=== PATIENT | male | born 1990 | race Caucasian/White ===

== ENCOUNTER 2018-05-24 18:06 | Inpatient (IN) | payer OTHER, MEDICAID ==
[2018-05-24 18:37] LABS: PLATELET COUNT 399 10^3/uL (150-400)
--- NOTE | 2018-05-24 19:49 | EDPHY ---
H & P Stated Complaint: SI - Personal History Current Tetanus/Diphtheria Vaccine: Yes Current Tetanus Diphtheria and Acellular Pertussis (TDAP): Yes - Medical/Surgical History Hx Asthma: No Hx Chronic Respiratory Disease: No Hx Diabetes: No Hx Cardiac Disease: No Hx Renal Disease: No Hx Cirrhosis: No Hx Alcoholism: No Hx HIV/AIDS: No Hx Splenectomy or Spleen Trauma: No Other PMH: bipolar with psychotic features, meth use, homeless - Social History Smoking Status: Current every day smoker Alcohol Use: Sober Drug Use: Marijuana Time Seen by Provider: 05/24/18 19:46 HPI/ROS: CHIEF COMPLAINT: Suicidal ideation HISTORY OF PRESENT ILLNESS: 27-year-old male with schizoaffective disorder presents with suicidal ideation. He was just seen at [facility] in the emergency department, had a mental health evaluation and was given a prescription for Latuda. He took the 1st dose of Latuda this morning. He returns this evening because of persistent suicidal thoughts. Hears voices that tell him to kill himself. He plans to cut himself in a suicidal attempt. He has previously cut himself, but apparently the cuts were minor and not life- threatening. He is currently requesting Zyprexa. REVIEW OF SYSTEMS: complete 10 point ROS reviewed and is negative except for the noted elements in the HPI (Sowmya Mercado) - Physical Exam Exam: General Appearance: Alert, cooperative Eyes: Pupils equal and round, no conjunctival pallor or injection ENT, Mouth: Mucous membranes moist Neck: Normal inspection Respiratory: Lungs are clear to auscultation Cardiovascular: Regular rate and rhythm Gastrointestinal: Abdomen is soft and nontender Neurological: A&O, nonfocal exam Skin: Warm and dry Extremities: Bilateral upper extremities are slightly erythematous, nontender Psychiatric: Mood and affect normal (Sowmya Mercado S) Constitutional: Initial Vital Signs Temperature (C) 36.7 C 05/24/18 18:09 Heart Rate 76 18 18:09 Respiratory Rate 16 18 18:09 Blood Pressure 123/74 H 18 18:09 O2 Sat (%) 100 18 18:09 O2 Delivery Mode Room Air Allergies/Adverse Reactions: No Known Allergies Allergy (Verified 05/25/18 09:34) Home Medications: Medication Instructions Recorded Lurasidone HCl [Latuda] 40 mg PO DAILY tab 05/27/18 Medical Decision Making ED Course/Re-evaluation: This patient presents with persistent suicidal ideation. He is on an M1 hold. Urine tox screen is positive for amphetamines, cocaine and marijuana. He took all of these drugs 3 days ago, no drug use today. He understands the mental health will likely not evaluate him this evening because of the positive tox screen for amphetamines. Zyprexa 5 mg ODT given. (Sowmya Mercado) 0700AM: No acute events overnight. Signed over to Dr. Weeks. (Steven Rendon ) Other Provider: I assumed care of this patient at 7:00 a.m., change of shift, from Dr. Steven Rendon. The patient's urine tox positive for methamphetamines, cocaine, and marijuana. He is currently on an M1 hold. Will be awaiting evaluation. Accepted at [facility]. EMTALA signed. (Marlene Weeks) - Data Points Laboratory Results: Laboratory Results 05/24/18 18:15 05/24/18 18:15 Medications Given: Discontinued Medications Acetaminophen (Tylenol) 650 mg PO Q4HRS PRN PRN Reason: Pain, Mild Stop: 11/21/18 11:39 Last Admin: 05/26/18 10:44 Dose: 650 mg Lorazepam (Ativan) 0.5 - 1 mg PO Q6HRS PRN PRN Reason: Anxiety, Able to Take PO Stop: 11/21/18 11:39 Last Admin: 05/27/18 10:24 Dose: 1 mg Lurasidone HCl (Latuda) 40 mg PO DAILY DAVID Stop: 11/21/18 11:42 Last Admin: 05/27/18 08:26 Dose: 40 mg Nicotine Polacrilex (Nicorette) 2 mg B PRN PRN PRN Reason: Nicotine Withdrawal Stop: 11/21/18 10:06 Last Admin: 05/27/18 09:59 Dose: 2 mg Olanzapine (Zyprexa Zydis) 5 mg PO EDNOW ONE Stop: 05/24/18 19:51 Last Admin: 05/24/18 20:00 Dose: 5 mg Departure - Departure Disposition: [facility] IP Clinical Impression: Suicidal ideation Condition: Good
[2018-05-24] MEDS ORDERED: OLANZapine DISINTEGR 5 MG TAB PO ONE (19:50)
--- NOTE | 2018-05-25 09:48 | ASMTTLCEVL ---
TLC Evaluation - Basic Information Evaluation Start Date and 05/24/2018 09:30 PM Time Hospital Status Answers: M1 Hold 72-hr M1 Hold Start Date 05/24/2018 05:25 PM and Time Patient statement Notes: Keep hearing voices. Narrative Notes: Pt is a 27 year old male who presented by [facility] on an M1 after pt called [facility] the [facility] stating he was actively thinking about harming himself by overdose. Pt was just seen at the [facility] in the ED, had a mental health evaluation and was given a prescription for Latuda which he took his 1st dose this morning. Pt returns this evening because of persistent suicidal thoughts, hearing voices that tell him to kill himself. Pt tells this leader writer the voices tell him to cut himself. Pt reports he has been hearing these voices for the past 6 days and that this has never happened before. Pt stated he is still feeling suicidal. Pt states he is feeling very depressed for the past couple weeks and is not sure what caused the depression. Pt stated he recently moved here from [place] 3.5 months ago because, "[place] has better health care." Diagnosis History Notes: Pt reports a hx of schizoaffective disorder. Prior suicide attempts Notes: Pt denied any prior suicide attempts. Prior hospitalizations Notes: Pt stated he has been hospitalized 3 or 4 times in [place]. Treatment Responses Notes: Unknown History of violence Notes: Pt denied any hx of violence. Therapist: None Psychiatrist: None Medications (name, dosage, route, freq uency) Notes: Latuda 80mg Allergies/Reaction Notes: Nka Sleep Notes: WNL. Appetite Notes: WNL. Medical/Surgical history Notes: None reported. Substance use history (frequency, intensity, his tory, duration) Notes: Pt stated he used methamphetamine and cocaine 3 days ago and stated he only uses these drugs, occasionally. Pt stated he also smokes marijuana, every other day, and has been doing this for about 2 months. Pts utox was positive for cocaine, methamphetamine and marijuana. Family composition Notes: Pt stated his mother lives in [place] in a alf home and his father lives here in [place]. Pt is an only child. Need for family Answers: No participation in patient's care Family psychiatric/substance abuse history Notes: Pt denied any hx of family psychiatric/substance abuse history. Developmental history Notes: Pt stated he grew up in [place] with his mother. Pt denied any childhood abuse hx.Pt declined to provide further information. Abuse concerns Answers: None Marital status/children Notes: Unmarried, no children. Living situation Notes: Pt stated he is currently homeless but stated next month he will have his own apartment. Sexual history/orientation Notes: Pt identifies as heterosexual. Not active. Peer support/family strengths Notes: Pt stated he has friends here in [place]. Education level/history Notes: Pt declined to provide this information. 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 Notes: None reported. Legal Notes: Pt denied any legal history. Zoroastrian/Spiritual Notes: None that would interfere treatement. Leisure Notes: Pt stated he does not have any leisure activities. Collateral Notes: None available. Patient's strengths Answers: Artistic/Creative/Musical (Please select at least TWO strengths): Honest TLC Evaluation - Mental Status Exam Appearance: Answers: Unkempt Eye Contact: Answers: Absent Mood: Answers: Euthymic Affect: Answers: Sad Subdued Behavior: Answers: Cooperative Guarded Sedated Speech: Answers: Relevant Illogical Loose Associations Mumbling Slurred Thought Process: Answers: Disorganized Oriented Distracted Loose Associations Insight: Answers: Fair Judgement: Answers: Fair Depression Answers: Difficulty Concentrating Signs/Symptoms: Diminished Pleasure Sad Mood Hallucinations: Answers: Command Delusions: Answers: Being Controlled Current Stage of Change Answers: Precontemplation Pt reported to have Answers: Yes suicidal/self-injuring ideation/behavior? Pt reported to be making Answers: Yes suicidal/self-injuring threats? Pt reported to have Answers: No aggression/assault ideation/behavior? Pt reported to be making Answers: No aggression/assault threats? Pt exhibits inability to Answers: No care for self/grave disability? Ideation/behavior is Answers: Yes chronic? Patient has a specific Answers: Yes plan? Pt has access to means to Answers: Yes execute the plan? Ideation involves Answers: Yes serious/lethal intent? Ideation has Answers: Yes delusional/hallucinatory content? History of Answers: No suicidal/self-injuring ideation, behavior, or threats? History of Answers: No aggressive/assaultive ideation, behavior, or threats? History of serious Answers: No physical harm to self/others while in treatment setting? TLC Evaluation - Suicide/Homicide Risk Suicide Risk Factors: Answers: < 20 or > 40 Years of Age Alcohol/Heavy Drug Use Command Hallucinations Impulsivity Inadequate Social Support Intoxication Lack of Social Support Lack/Loss of Employment Schizoaffective Disorder Single Homicide/violence risk Answers: None factors: Current Suicidal Answers: Yes Ideation? Current Suicide Ideation Pt stated he has been having CH for the past 6 days Frequency: . Current Suicidal Ideation Answers: Yes in the Past 48 Hours? Current Suicidal Ideation Answers: Yes in the Past Month? Current Suicidal Answers: Yes Ideation, Worst Ever? Suicide Internal Answers: None Protective Factors: Suicide External Answers: None Protective Factors: Ranking of patient's Answers: Moderate suicidal risk: Ranking of patient's Answers: Low homicidal risk: TLC Evaluation - Wrap-up AXIS I Diagnosis (include DSM-V and ICD-10 codes), must also be entered in [employer], which is the source of truth. Notes: Schizoaffective Disorder, Bipolar Type 295.70 (F25.0) Amphetamine-Type Substance Use Disorder, moderate 304.40 (F15.20) Cocaine Use Disorder, moderate 305.60 (F14.20) Cannabis Use Disorder, moderate 304.30 (F12.20) Pt unable to complete BDI/BSS questionnaires. In consultation with [facility] ED physician, Marlene Weeks MD and on-call psychiatrist, Jorje Franks MD, both concurred that pt appears to meet 27-65 criteria requiring psychiatric hospitalization as pt appears to be at risk of harm to self due to a mental illness condition. Pt was given (but declined to sign) the [facility] prohibited belongings list while in the ED. Evaluation End Date and 05/24/2018 10:30 PM Time (HH:TERRIE): Date Signed: 05/25/2018 09:47 AM Electronically Signed By:Wilfredo Chan
--- NOTE | 2018-05-25 09:49 | ASMTTCLDSP ---
TLC Discharge Disposition Disposition: Answers: Admit Disposition Notes: Notes: Admit 3[facility]. Discharge Concerns/Recommendations: Notes: In consultation with [facility] ED physician, Marlene Weeks MD and on-call psychiatrist, Jorje Franks MD, both concurred that pt appears to meet 27-65 criteria requiring psychiatric hospitalization as pt appears to be at risk of harm to self due to a mental illness condition. Pt was given (but declined to sign) the [facility] prohibited belongings list while in the ED. Was patient given the Answers: Yes Inpatient Behavioral Health Prohibited Belongings List while in the ED? For inpatient Jorje Franks MD admission, the following psychiatrist agreed to accept patient for admission to Behavioral Health ([facility]): Type of Hold: Answers: M1/72-hour Hold Hold initiated by: Answers: Police Date Signed: 05/25/2018 09:48 AM Electronically Signed By:Wilfredo Chan
[2018-05-25] MEDS ORDERED: NICOTINE POLACRILEX 2 MG GUM B PRN (10:07)
--- NOTE | 2018-05-25 11:31 | GCON ---
DATE OF CONSULTATION: 05/25/2018 REFERRING PHYSICIAN: Jorje Franks MD REASON FOR CONSULTATION: Medical evaluation. HISTORY OF PRESENT ILLNESS: A 27-year-old male with schizoaffective disorder, polysubstance abuse, p resenting with suicidal ideation. He was just seen at [facility] ER and had a mental health evaluation, was given a prescription of Latuda. He took his first dose yesterday. He returned to [facility] ER last evening because of persistent suicidal thoughts. He hears voices that tell him to kill hi mself. He says he would cut himself. He has previously cut himself with no major injury. He has no homicidal ideations. He has not seen any visual hallucinations. He has been in [place] for 3 months . He came up to [place] because he has an aunt that lives here. Last snorted meth 2 days ago. Smok es a half a pack of cigarettes daily. REVIEW OF SYSTEMS: I completed a 10-point review of systems, negative, except as noted in HPI. PAST MEDICAL HISTORY: Polysubstance abuse: meth, cocaine abuse. PAST SURGICAL HISTORY: None. FAMILY HISTORY: Noncontributory. PAST MEDICAL HISTORY: Prior suicidal attempt. SOCIAL HISTORY: Was previously in [place], [place]. Was in [place] for the past 3 months. Seen at [facility]. Now is here with an aunt in [place]. He smokes half a pack of cigarettes, snorts m eth, uses cocaine. Denies alcohol. PHYSICAL EXAM: VITAL SIGNS: Temperature 36.7, blood pressure 123/74, heart rate in the 70s, respira tions 16, 100% on room air. GENERAL: He is thin, lying in bed, sleeping, in no acute distress. EDIE NT: PERRLA. Moist mucous membranes. CV: Regular rate and rhythm. LUNGS: Clear. ABDOMEN: Soft, nontender, nondistended with positive bowel sounds. : No Haile. MUSCULOSKELETAL: 5/5 upper and lower extremity strength. NEURO: 2 through 12 intact. PSYCH: He is alert and oriented x3. Flat affect, but pleasant. He is answering questions appropriately. LABORATORY DATA: WBC 9, hemoglobin 14, hematocrit 42, platelets 399. Sodium 138, potassium 4.8, chl oride 99, carbon dioxide 26, creatinine 0.7, glucose 89, calcium 9.6. U-Tox positive for amphetamine , cocaine, and marijuana. Alcohol negative. ASSESSMENT/PLAN: 1. Polysubstance abuse: Including amphetamines, cocaine, marijuana. He was counseled on cessation. 2. Problem suicidal ideation: Voices are telling me to hurt himself. He has been evaluated by [facility] and will be transferred to [address] [place] [address] for further psychiatric care. 3. Schizoaffective disorder: Again, plan as stated above. 4. Tobacco abuse: Nicorette gum per his request. Can add a patch. 5. Diet: Regular. 6. Deep venous thrombosis prophylaxis: Ambulatory. Thank you for this consultation. Please call if any questions. /[id number]/MODL
[2018-05-25] MEDS ORDERED: ACETAMINOPHEN 325 MG TAB PO PRN (11:40)
[2018-05-25] MEDS ORDERED: MAG HYDROX/AL HYDROX/SIMETH 30 ML UDCUP PO PRN (11:40)
[2018-05-25] MEDS ORDERED: MAGNESIUM HYDROXIDE 30 ML UDCUP PO PRN (11:40)
[2018-05-25] MEDS: NICOTINE POLACRILEX 2 MG GUM B PRN (11:56)
--- NOTE | 2018-05-25 11:59 | ASMTBHMTP ---
Master Treatment Plan Master Treatment Plan Answers: Depressed Mood with for: Suicidal Ideation Date: 05/25/2018 Diagnosis on Admission: Schizoaffective Disorder, BiPolar Type 295.70 (F25.0) Expected length of stay: 3-5 days Reason for admission: Notes: Per Report: Pt is a 27 year old male who presented by [facility] on an M1 after pt called [facility] the [facility] stating he was actively thinking about harming himself by overdose. Pt was just seen at the [facility] in the ED, had a mental health evaluation and was given a prescription for Latuda which he took his 1st dose this morning. Pt returns this evening because of persistent suicidal thoughts, hearing voices that tell him to kill himself. Pt tells this radio script writer the voices tell him to cut himself. Pt reports he has been hearing these voices for the past 6 days and that this has never happened before. Pt stated he is still feeling suicidal. Pt states he is feeling very depressed for the past couple weeks and is not sure what caused the depression. Pt stated he recently moved here from [place] 3[place]5 months ago because, "[place] has better health care." Patient's stated presenting problems: Notes: I hear vocies and they have gotten really bad Patient's goals for treatment: Notes: to stop having voices Patient's strengths: Notes: none Identify supports outside of hospital: Notes: Possible Aunt in [place], but we don't talk much Discharge criteria: Notes: To stay at a intermediate until I get housing.* Master Treatment Plan Required Signatures Psychiatrist signature: Answers: Psychiatrist: RN on-shift signature: Answers: RN: Patient signature: Answers: Patient: Date Signed: 05/25/2018 11:58 AM Electronically Signed By:Ramírez Grimes
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
[2018-05-25] MEDS ORDERED: LURASIDONE HCL 40 MG TAB PO SCH (18:00)
[2018-05-26] MEDS: NICOTINE POLACRILEX 2 MG GUM B PRN ×6 (06:43→20:08)
[2018-05-26] MEDS: LURASIDONE HCL 40 MG TAB PO SCH (08:26)
--- NOTE | 2018-05-26 09:08 | ASMTBHDC ---
Notes Note: Notes: CC confirmed client's follow up out-patient apt with [facility]. Follow up with: [facility] [address] [place] [address] 2nd [facility] Intake Appt: June 02 (06/02/18) at 2:30pm with Jazlyn (at address above on 2nd floor). Date Signed: 05/26/2018 09:08 AM Electronically Signed By:Ramírez Grimes
--- NOTE | 2018-05-26 09:52 | PDMN ---
Medical Necessity Medical necessity: [facility] – [place] [id number] Schizophrenia Spectrum Disorders, Adult: Inpatient Care: 27 yo w/ schizoaffective d/o, bipolar type by hx, med noncompliance, chronic illness, homeless, substance abuse. Risk of harm to self , on M1 hold.
--- NOTE | 2018-05-26 12:06 | ASMTCMCOM ---
CM Note CM Note Notes: Pt. reports feeling "good". Pt. reports sleeping "not very well" adding he had "a lot of anxiety". Pt. reports eating well and having no issues with his medications. Pt. stated he is not attending groups stating he "haven't been well" adding he has been "light headed". Pt. denied SI, HI, AH, and paranoia. Pt. reports VH of "bad dreams" adding "they should clear up with medication". Pt. stated he will have an apartment on 06/22/18. Pt. stated he needs to order a new social security pay card and asked if it could be mailed to the hospital. Pt. presents as alert, fidgety appears to be withdrawing from drugs, guarded, poor eye contact, missing top row of teeth and mostly cooperative. Staff report pt. sleeping 15 hours and being medication compliant. Date Signed: 05/26/2018 12:06 PM Electronically Signed By:Neli Crowell
--- NOTE | 2018-05-26 15:11 | SOAPPROG ---
SOAP Progress Note Assessment/Plan: Assessment: Plan: 05/26/18 15:14 Mood: Improved. SI resolving/resolved. Appears more manipulative, drug- seeking. I don't believe that he forgot to tell us that he takes Suboxone. Will place on a COWS scale for 24 hours to monitor. Could give clonidine or antiemetic/diarrheal, but will not give opioids under any circumstance. Subjective: Pt seen, discussed with staff, interviewed in Treatment Team meeting. He is reported to have been irritable and demanding with staff last evening. He is cooperative and pleasant with Team. Discussed treatment and discharge plans at length. Pt voices agreement with these. Later in afternoon, pt approaches RN and states he is in opiate w/drawal. C/o vomiting and diarrhea telling RN that he normally takes Suboxone 8mg BID. Objective: Vital Signs Temp Pulse Resp BP Pulse Ox 36.3 C 111 H 16 103/72 96 05/26/18 06:00 05/26/18 13:51 05/26/18 13:51 05/26/18 13:51 05/26/18 13:51 MSE: Calm, coop, appropriately interactive. No tremors, sweats, flushing or piloerection noted. Affect is restricted, stable, approp. Mood is "better." TP is linear. TC reveals no psychosis. A&Ox4, sensorium clear. No SI. - Time Spent With Patient Time Spent With Patient: 25" ICD10 Worksheet Patient Problems: Problems Problem Status Onset Suicidal ideation Acute
[2018-05-26] MEDS ORDERED: LOPERAMIDE HCL 2 MG CAP PO PRN (15:16)
[2018-05-26] MEDS: LORazepam 0.5 MG TAB PO PRN (16:33)
[2018-05-27] MEDS: LORazepam 0.5 MG TAB PO PRN ×2 (04:25→10:24)
[2018-05-27] MEDS: NICOTINE POLACRILEX 2 MG GUM B PRN ×3 (04:25→09:59)
[2018-05-27] MEDS: LURASIDONE HCL 40 MG TAB PO SCH (08:26)
[2018-05-27 10:33] VITALS: BP 106/73
== END 2018-05-27 11:30 | disposition home or self-care (01) | DRG 885 ==
LOC: BBEH 05-25 11:13
PROVIDERS: ADMIT Psychiatry & Neurology Psychiatry; ATTEND Psychiatry & Neurology Psychiatry
DX: F25.0 Schizoaffective disorder, bipolar type (principal); F15.151 Other stimulant abuse with stimulant-induced psychotic disorder with hallucinations; F14.151 Cocaine abuse with cocaine-induced psychotic disorder with hallucinations; F12.151 Cannabis abuse with psychotic disorder with hallucinations; T43.506A Underdosing of unspecified antipsychotics and neuroleptics, initial encounter; Z59.0 Homelessness; Z72.0 Tobacco use
CPT/HCPCS: 80305; G0480

== ENCOUNTER 2018-05-27 17:24 | Emergency (ER) | payer OTHER, MEDICAID ==
--- NOTE | 2018-05-27 18:03 | EDPHY ---
H & P Time Seen by Provider: 05/27/18 17:49 HPI/ROS: Chief complaint. Suicide ideation, opiate withdrawal HPI. 27-year-old homeless male with history of bipolar and schizoaffective disorder presents with complaint of voices telling him to hurt himself. He was seen in our emergency department on 05/25 for same complaints. He has a plan that he would hurt himself by overdose. He has not tried to hurt himself. He tells me he is taking Latuda but his last Suboxone was a week ago. Last heroin 4 days ago. Last methamphetamine 4 days ago. Denies alcohol. He would like to talk to Psychiatry. Denies fever, chest pain, shortness of breath, abdominal pain. He would like something to help with heroin withdrawal. ROS 10 systems were reviewed and negative with the exception of the elements mentioned in the history of present illness Past Medical/Surgical History: Bipolar, schizoaffective disorder, polysubstance abuse Social History: Single, homeless, denies alcohol, daily smoker Smoking Status: Current every day smoker Physical Exam: General Appearance: Alert well-developed male mild distress vital signs are stable Eyes: Pupils equal and round no pallor or injection. ENT, Mouth: Mucous membranes are moist. Respiratory: There are no retractions, lungs are clear to auscultation. Cardiovascular: Regular rate and rhythm. Gastrointestinal: Abdomen is soft and nontender, no masses, bowel sounds normal. Neurological: Awake and alert, sensory and motor exams grossly normal. Skin: Warm and dry, no rashes. Musculoskeletal: Neck is supple nontender. Extremities symmetrical, full range of motion. Psychiatric: Patient is oriented X 3, there is no agitation. Constitutional: Initial Vital Signs Temperature (C) 36.7 C 05/27/18 17:29 Heart Rate 93 05/27/18 17:29 Respiratory Rate 16 05/27/18 17:29 Blood Pressure 110/63 05/27/18 17:29 O2 Sat (%) 99 05/27/18 17:29 O2 Delivery Mode Room Air Allergies/Adverse Reactions: No Known Allergies Allergy (Verified 05/25/18 09:34) Home Medications: Medication Instructions Recorded Lurasidone HCl [Latuda] 40 mg PO DAILY tab 05/27/18 clonIDINE [Catapres (*)] 0.2 mg PO TID #10 tab 05/27/18 Medical Decision Making Procedures: Clonidine orally ED Course/Re-evaluation: 10:10 p.m. patient has been evaluated by mental health. They feel that the patient is appropriate for outpatient therapy. Appropriate resources are given to the patient. The patient remained stable in the emergency department Differential Diagnosis: Polysubstance use. Recent admission for opiate withdrawal and suicide ideation. Returns today for same symptoms. - Data Points Laboratory Results: Laboratory Results 05/27/18 19:10 05/27/18 19:10 05/27/18 05/27/18 05/27/18 19:10 19:10 18:50 WBC 14.08 10^3/uL H 10^3/uL (3.80-9.50) RBC 4.80 10^6/uL 10^6/uL (4.40-6.38) Hgb 14.0 g/dL g/dL (13.7-17.5) Hct 40.5 % % (40.0-51.0) MCV 84.4 fL fL (81.5-99.8) MCH 29.2 pg pg (27.9-34.1) MCHC 34.6 g/dL g/dL (32.4-36.7) RDW 14.4 % % (11.5-15.2) Plt Count 409 10^3/uL H 10^3/uL (150-400) MPV 9.3 fL fL (8.7-11.7) Neut % (Auto) 74.7 % H % (39.3-74.2) Lymph % (Auto) 16.5 % % (15.0-45.0) Rolette % (Auto) 7.0 % % (4.5-13.0) Eos % (Auto) 1.0 % % (0.6-7.6) Baso % (Auto) 0.4 % % (0.3-1.7) Nucleat RBC Rel Count 0.0 % % (0.0-0.2) Absolute Neuts (auto) 10.50 10^3/uL H 10^3/uL (1.70-6.50) Absolute Lymphs (auto) 2.33 10^3/uL 10^3/uL (1.00-3.00) Absolute Monos (auto) 0.99 10^3/uL H 10^3/uL (0.30-0.80) Absolute Eos (auto) 0.14 10^3/uL 10^3/uL (0.03-0.40) Absolute Basos (auto) 0.06 10^3/uL 10^3/uL (0.02-0.10) Absolute Nucleated RBC 0.00 10^3/uL 10^3/uL (0-0.01) Immature Gran % 0.4 % % (0.0-1.1) Immature Gran # 0.06 10^3/uL 10^3/uL (0.00-0.10) Sodium 135 mEq/L mEq/L (135-145) Potassium 4.3 mEq/L mEq/L (3.5-5.2) Chloride 98 mEq/L mEq/L (97-110) Carbon Dioxide 26 mEq/l mEq/l (22-31) Anion Gap 11 mEq/L mEq/L (6-14) BUN 19 mg/dL mg/dL (7-23) Creatinine 0.7 mg/dL mg/dL (0.7-1.3) Estimated GFR > 60 Glucose 95 mg/dL mg/dL (70-100) Calcium 9.4 mg/dL mg/dL (8.5-10.4) Urine Opiates Screen NEGATIVE (NEGATIVE) Acetaminophen < 10 mcg/mL L mcg/mL (10-30) Urine Barbiturates NEGATIVE (NEGATIVE) Ur Phencyclidine Scrn NEGATIVE (NEGATIVE) Ur Amphetamine Screen NON-NEGATIVE H (NEGATIVE) U Benzodiazepines Scrn NON-NEGATIVE H (NEGATIVE) Urine Cocaine Screen NEGATIVE (NEGATIVE) U Marijuana (THC) Screen NON-NEGATIVE H (NEGATIVE) Ethyl Alcohol < 10 mg/dL mg/dL (0-10) Medications Given: Discontinued Medications Clonidine (Catapres) 0.2 mg PO EDNOW ONE Stop: 05/27/18 18:05 Last Admin: 05/27/18 18:23 Dose: 0.2 mg Departure - Departure Disposition: Home, Routine, Self-Care Clinical Impression: Polysubstance abuse Condition: Good Instructions: Polysubstance Abuse (ED) Additional Instructions: Follow up with mental health and resources provided. Clonidine 1 pill 3 times daily to help with opiate withdrawal Return for further thoughts of harming yourself or others. Referrals: NONE *PRIMARY CARE P,. [Primary Care Provider] - As per Instructions [facility] [Outside] - As per Instructions [facility] [Outside] - As per Instructions Prescriptions: clonIDINE [Catapres (*)] 0.2 mg PO TID #10 tab
[2018-05-27 19:22] LABS: PLATELET COUNT 409 10^3/uL (150-400)
[2018-05-27 22:33] VITALS: BP 136/78
--- NOTE | 2018-05-27 22:54 | ASMTTLCEVL ---
[facility] Evaluation - Basic Information Evaluation Start Date and 05/27/2018 10:00 PM Time Hospital Status Answers: Voluntary Patient statement Notes: "The voices have gotten worse." Narrative Notes: Pt is a 27 year old male who self presented by after just being discharged from [facility] earlier today complaining of voices telling him to hurt himself. Pt was seen in our emergency department 3 days ago for the same complaints. Pt stated he has a plan that he would hurt himself by overdose. Pt has not tried to hurt himself. Pt states he is taking his Latuda but his last dose of suboxone was a week ago and heroin 4 days ago. Last methamphetamine use was 4 days ago. Per [facility] eval on 05/25/18, pt did not mention that he took suboxone. Per psychiatrist Dr. Mancuso note: 05/26/18 SI resolving/resolved. Appears more manipulative, drug seeking. I dont believe that he forgot to tell us that he takes Suboxone. Will place on COWS scare for 24 hours to monitor. Could give clonidine or antiemetic/diarrheal, but will not give opioids under any circumstance. Pt stated he did not have suicidal ideation earlier today at [facility] but "they came back." Pt also denied taking any opiates today and stated he has been in opiate wi/d for the past week. Per [facility] eval on 05/25/18, Pt was just seen at the [facility] in the ED, had a mental health evaluation and was given a prescription for Latuda which he took his 1st dose this morning. Pt returns this evening because of persistent suicidal thoughts, hearing voices that tell him to kill himself. Pt tells this medical writer the voices tell him to cut himself. Pt reports he has been hearing these voices for the past 6 days and that this has never happened before. Pt stated he is still feeling suicidal. Pt states he is feeling very depressed for the past couple weeks and is not sure what caused the depression. Pt stated he recently moved here from [place] 3.5 months ago because, "[place] has better health care." Diagnosis History Notes: Pt has a hx of schizophrenia. Prior suicide attempts Notes: Pt denied any prior suicide attempts. Prior hospitalizations Notes: Pt stated he has been hospitalized 3 or 4 times in [place]. Treatment Responses Notes: Unk History of violence Notes: Pt denied any hx of violence. Therapist: None Psychiatrist: None Medications (name, dosage, route, freq uency) Notes: Latuda 80mg Allergies/Reaction Notes: Nka Sleep Notes: Wnl Appetite Notes: Wnl Medical/Surgical history Notes: None reported Substance use history (frequency, intensity, his tory, duration) Notes: Pt stated he used methamphetamine and cocaine 3 days ago and stated he only uses these drugs, occasionally. Pt stated he also smokes marijuana, every other day, and has been doing this for about 2 months. Pts utox was positive for methamphetamine. Family composition Notes: Pt stated his mother lives in [place] in a residential home and his father lives here in [place]. Pt is an only child. Need for family Answers: No participation in patient's care Family psychiatric/substance abuse history Notes: Pt denied any hx of family psychiatric/substance abuse history. Developmental history Notes: Pt stated he grew up in [place] with his mother. Pt denied any childhood abuse hx. Pt declined to provide further information. Abuse concerns Answers: None Marital status/children Notes: Unmarried, no children Living situation Notes: Pt stated he is currently homeless but stated next month he will have his own apartment. Sexual history/orientation Notes: Pt idenitfies as heterosexual. Peer support/family strengths Notes: Pt stated he has friends here in [place]. Education level/history Notes: Pt declined to provide this information. 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 Notes: None reported. Legal Notes: Pt denied any legal history. Quaker/Spiritual Notes: None that would interfere treatment. Leisure Notes: Pt stated he does not have any leisure activities. Collateral Notes: Previous TLC records. Patient's strengths Answers: Artistic/Creative/Musical (Please select at least TWO strengths): Willingness TLC Evaluation - Mental Status Exam Appearance: Answers: Unkempt Disheveled Eye Contact: Answers: Absent Mood: Answers: Depressed Affect: Answers: Indifferent Behavior: Answers: Sleeping Speech: Answers: Relevant Logical Clear Coherent Thought Process: Answers: Organized Oriented Alert Insight: Answers: Poor Judgement: Answers: Poor Hallucinations: Answers: None Pt reported to have Answers: No suicidal/self-injuring ideation/behavior? Pt reported to be making Answers: Yes suicidal/self-injuring threats? Pt reported to have Answers: No aggression/assault ideation/behavior? Pt reported to be making Answers: No aggression/assault threats? Pt exhibits inability to Answers: No care for self/grave disability? Ideation/behavior is Answers: No chronic? Patient has a specific Answers: No plan? Pt has access to means to Answers: No execute the plan? Ideation involves Answers: No serious/lethal intent? History of Answers: No suicidal/self-injuring ideation, behavior, or threats? History of Answers: No aggressive/assaultive ideation, behavior, or threats? History of serious Answers: No physical harm to self/others while in treatment setting? TLC Evaluation - Suicide/Homicide Risk Suicide Risk Factors: Answers: < 20 or > 40 Years of Age Alcohol/Heavy Drug Use Unstable Living Situation Current Suicidal Answers: Yes Ideation? Current Suicide Ideation Pt unable to report frequency. Pt appears to be Frequency: malingering/drug seeking. Current Suicidal Ideation Answers: No in the Past 48 Hours? Current Suicidal Ideation Answers: Yes in the Past Month? Current Suicidal Answers: No Ideation, Worst Ever? Suicide Internal Answers: Frustration Tolerance Protective Factors: Suicide External Answers: None Protective Factors: Ranking of patient's Answers: Low suicidal risk: Ranking of patient's Answers: Low homicidal risk: TLC Evaluation - Wrap-up AXIS I Diagnosis (include DSM-V and ICD-10 codes), must also be entered in [employer], which is the source of truth. Notes: Schizophrenia 295.90 (F20.9) In consultation with [facility] ED physician, Artis Patterson MD, and on-call psychiatrist, Jorje Franks MD, both concurred that pt does not appear to meet 27-65 criteria requiring psychiatric hospitalization as pt does not appear to be an imminent risk of harm to self/others/gravely disabled due to a mental illness condition. Evaluation End Date and 05/27/2018 10:50 PM Time (HH:MM): Date Signed: 05/27/2018 10:54 PM Electronically Signed By:Grace Suarez
--- NOTE | 2018-05-27 22:56 | ASMTTCLDSP ---
TLC Discharge Disposition Disposition Notes: Notes: Pt was given resources for the homeless, [facility] and suicide prevention hotline numbers. Pt encouraged to call [facility]. Pt stated he was interested in receiving help for his addiction and stated he believed this can be achieved on an outpatient basis. Discharge Concerns/Recommendations: Notes: In consultation with [facility] ED physician, Artis Patterson MD, concurred that pt does not appear to meet 27-65 criteria requiring psychiatric hospitalization as pt does not appear to be an imminent risk of harm to self/others/gravely disabled due to a mental illness condition. Date Signed: 05/27/2018 10:56 PM Electronically Signed By:Grace Suarez
--- NOTE | 2018-05-27 23:02 | ASMTLCPROG ---
Notes Note: Notes: Correction to TLC Eval: Dr. Jana Henson is the accepting psychiatrist, not Jorje Franks MD Date Signed: 05/27/2018 11:02 PM Electronically Signed By:Grace Suarez
== END 2018-05-27 22:34 | disposition home or self-care (01) ==
LOC: EDUNIT#
DX: F19.10 Other psychoactive substance abuse, uncomplicated (principal); F25.0 Schizoaffective disorder, bipolar type; F17.200 Nicotine dependence, unspecified, uncomplicated; Z59.0 Homelessness
CPT/HCPCS: 80305; G0480

== ENCOUNTER 2018-05-30 17:27 | Emergency (ER) | payer OTHER, MEDICAID ==
--- NOTE | 2018-05-30 17:40 | EDPHY ---
H & P Time Seen by Provider: 05/30/18 17:32 HPI/ROS: CHIEF COMPLAINT: Anxiety HISTORY OF PRESENT ILLNESS: The patient is a 27-year-old homeless male with history of any polysubstance abuse, schizophrenia and bipolar brought here by EMS with complaints of increased anxiety. Patient states that he is at increased anxiety and feels that his skin is crawling after being off Suboxone for the last week and a half. He has an appointment with a mental health provider in 3 days is requesting 1 dose of opiates in the emergency room and medication to help with this anxiety for the next 3 days. He recently was admitted for suicidal ideation and a thoroughly reviewed his consultation with Psychiatry which recommended not giving the patient any opiates. Denies any suicidal or homicidal ideation and denies any hallucinations. States that his last use of heroin over was over a week ago. He is also requesting Zofran for nausea states the clonidine did not help his symptoms as much as Zofran did. REVIEW OF SYSTEMS: Constitutional: No fever, no chills. Eyes: No discharge. ENT: No sore throat. Cardiovascular: No chest pain, no palpitations. Respiratory: No cough, no shortness of breath. Gastrointestinal: No abdominal pain, no vomiting. Genitourinary: No hematuria. Musculoskeletal: No back pain. Skin: No rashes. Neurological: No headache. Smoking Status: Current every day smoker Physical Exam: General Appearance: Alert and no distress. ENT: normal dentition. No tonsillar exudate or swelling. Eyes: Pupils equal and round no injection. Respiratory: Chest is nontender, lungs are clear to auscultation. Cardiac: regular rate and rhythm. No lower extremity edema Gastrointestinal: Abdomen is soft and nontender, no masses, bowel sounds normal. Musculoskeletal: Neck is supple and nontender. Extremities have full range of motion and are nontender without deformity Skin: No rashes or lesions. Neuro: Cranial nerves grossly intact. Ambulatory. Constitutional: Initial Vital Signs Temperature (C) 36.9 C 05/30/18 17:40 Heart Rate 85 05/30/18 17:40 Respiratory Rate 16 05/30/18 17:40 Blood Pressure 124/69 H 05/30/18 17:40 O2 Sat (%) 98 05/30/18 17:40 O2 Delivery Mode Room Air Allergies/Adverse Reactions: No Known Allergies Allergy (Verified 05/25/18 09:34) Home Medications: Medication Instructions Recorded Lurasidone HCl [Latuda] 40 mg PO DAILY tab 05/27/18 clonIDINE [Catapres (*)] 0.2 mg PO TID #10 tab 05/27/18 clonazePAM [Klonopin (*)] 0.5 mg PO BID #6 tab 05/30/18 Medical Decision Making ED Course/Re-evaluation: 27-year-old male here with complaint of anxiety. He has alert and oriented non diaphoretic. He is not hypertensive and is not tachycardic. A CT shows no signs of acute withdrawal syndrome. Review of his chart did see that psychiatry recommended no opiates so he was given 1 dose of Klonopin here to help with his anxiety and a prescription for 6 more Klonopin that he may use as needed for anxiety before he sees his mental health provider on Thursday. - Data Points Laboratory Results: 05/30/18 17:50 Urine Opiates Screen NEGATIVE ng/mL ng/mL (NEGATIVE) Urine Barbiturates NEGATIVE ng/mL ng/mL (NEGATIVE) Ur Phencyclidine Scrn NEGATIVE ng/mL ng/mL (NEGATIVE) Ur Amphetamines Screen NEGATIVE ng/mL ng/mL (NEGATIVE) U Benzodiazepines Scrn NEGATIVE ng/mL ng/mL (NEGATIVE) Urine Cocaine Screen NEGATIVE ng/mL ng/mL (NEGATIVE) U Marijuana (THC) Screen 78 ng/mL ng/mL (NEGATIVE) Medications Given: Discontinued Medications Clonazepam (Klonopin) 0.5 mg PO EDNOW ONE Stop: 05/30/18 18:05 Last Admin: 05/30/18 18:17 Dose: 0.5 mg Ondansetron HCl (Zofran Odt 4 Mg Prepack#2) 1 btl TAKEHOME EDNOW ONE Stop: 05/30/18 18:09 Last Admin: 05/30/18 18:16 Dose: 1 btl Departure - Departure Disposition: Home, Routine, Self-Care Clinical Impression: Anxiety, Opiate withdrawal Condition: Good Instructions: Ondansetron (By mouth), Anxiety (ED) Referrals: Patient,NotPresent [Unknown] - As per Instructions [facility],. [Clinic] - As per Instructions Prescriptions: clonazePAM [Klonopin (*)] 0.5 mg PO BID #6 tab
[2018-05-30] MEDS ORDERED: clonazePAM 0.5 MG TAB PO ONE (18:04)
[2018-05-30] MEDS ORDERED: ONDANSETRON 4MG PREPACK#2 BTL TAKEHOME ONE (18:08)
[2018-05-30 18:42] VITALS: BP 118/69
== END 2018-05-30 18:39 | disposition home or self-care (01) ==
LOC: EDUNIT#
DX: F41.9 Anxiety disorder, unspecified (principal); F11.23 Opioid dependence with withdrawal; R11.10 Vomiting, unspecified; F20.9 Schizophrenia, unspecified; F31.9 Bipolar disorder, unspecified; F17.200 Nicotine dependence, unspecified, uncomplicated; Z59.0 Homelessness
CPT/HCPCS: 80307; G0480

== ENCOUNTER 2018-06-02 20:15 | Inpatient (IN) | payer OTHER ==
[2018-06-02] MEDS ORDERED: LORazepam 1 MG TAB PO ONE (21:02)
--- NOTE | 2018-06-02 21:14 | EDPHY ---
H & P Smoking Status: Current every day smoker Time Seen by Provider: 06/02/18 21:14 HPI/ROS: CHIEF COMPLAINT: Suicidal ideation HISTORY OF PRESENT ILLNESS: Patient recently admitted at the mental health [facility] here, left after a discussion about Suboxone per the notes. He has bipolar type schizoaffective disorder per the notes. He said he went to [facility] today to his lithium refilled but that could happen and so he tells me he wants to hang himself. Denies actually injuring himself today or overdosing. REVIEW OF SYSTEMS: Eye: no change in vision ENT: no sore throat Cardiac: no chest pain or syncope Pulmonary: no cough or SOB Abdomen: no vomiting, diarrhea, abdominal pain Musculoskeletal: no back pain Skin: no rash Neuro: Headache which is typical, diffuse, not thunderclap in onset or worst of life Constitutional: no fever : no urinary symptoms A comprehensive 10 point review of systems is otherwise negative aside from elements mentioned in the history of present illness. PAST MEDICAL HISTORY: Schizoaffective disorder bipolar type Social history: Admits to methamphetamine denies alcohol General Appearance: Alert and conversant, cooperative. Eyes: No scleral icterus. ENT, Mouth: Normal mucous membranes. Respiratory: Normal respiratory effort, breath sounds equal, lungs are clear to auscultation. Cardiovascular: Regular rate and rhythm. Gastrointestinal: Abdomen is soft and non tender. Neurological: Alert, face symmetric, normal motor and sensory in extremities. Skin: Warm and dry, no rashes. Musculoskeletal: No peripheral edema. Psychiatric: Not agitated. See HPI. Emergency Department course/MDM: Screening labs and mental health evaluation requested. The patient had a medical screening evaluation performed. There does not appear to be an acute emergent medical or surgical condition which would preclude psychiatric evaluation at this time. Mental health evaluation is requested at 213. Signed out to [facility] at 2205 with evaluation pending. 1516: Patient is being transferred to [facility] for inpatient psychiatric care. EMTALA by Dr. Mercado. (Greg Leiva) Constitutional: Initial Vital Signs Temperature (C) 36.7 C 06/02/18 20:08 Heart Rate 68 06/02/18 20:08 Respiratory Rate 20 06/02/18 20:08 Blood Pressure 124/77 H 06/02/18 20:08 O2 Sat (%) 94 06/02/18 20:08 O2 Delivery Mode Room Air Allergies/Adverse Reactions: aripiprazole [From Abilify] Allergy (Verified 06/02/18 20:44) Home Medications: Medication Instructions Recorded clonIDINE [Catapres (*)] 0.2 mg PO TID #10 tab 05/27/18 clonazePAM [Klonopin (*)] 0.5 mg PO BID #6 tab 05/30/18 Lurasidone HCl [Latuda] 80 mg PO DAILY 06/03/18 Medical Decision Making ED Course/Re-evaluation: 0700AM: No acute events overnight. Patient resting. Signed over to Dr. Mercado ( [facility]) Differential Diagnosis: Differential diagnosis considered for depression including functional and major depression, situational depression, medication side effect, drugs and alcohol abuse. (Greg Leiva) - Data Points Laboratory Results: Laboratory Results 06/02/18 20:23 06/02/18 20:23 Medications Given: Discontinued Medications Acetaminophen (Tylenol) 650 mg PO EDNOW ONE Stop: 06/03/18 11:41 Last Admin: 06/03/18 11:44 Dose: 650 mg Lorazepam (Ativan) 2 mg PO EDNOW ONE Stop: 06/02/18 21:03 Last Admin: 06/02/18 21:06 Dose: 2 mg Lorazepam (Ativan) 2 mg PO EDNOW ONE Stop: 06/03/18 15:06 Last Admin: 06/03/18 15:10 Dose: 2 mg Nicotine (Nicoderm Cq) 21 mg TD EDNOW ONE Stop: 06/03/18 07:28 Last Admin: 06/03/18 08:05 Dose: 21 mg Departure - Departure Disposition: [facility] IP Clinical Impression: Schizoaffective disorder, bipolar type Condition: Good Instructions: Schizoaffective Disorder (ED) Referrals: NONE *PRIMARY CARE P,. [Primary Care Provider] - As per Instructions
[2018-06-02 21:23] LABS: PLATELET COUNT 370 10^3/uL (150-400)
[2018-06-03] MEDS ORDERED: NICOTINE 21 MG/24 HR PATCH TD ONE (07:27)
[2018-06-03] MEDS ORDERED: ACETAMINOPHEN 325 MG TAB PO ONE (11:40)
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
--- NOTE | 2018-06-03 13:07 | ASMTTCLDSP ---
TLC Discharge Disposition Disposition: Answers: Admit Disposition Notes: Notes: Admit to [facility]. Discharge Concerns/Recommendations: Notes: In consultation with [facility] ED physician, Marilyn Mercado MD and on-call psychiatrist, Jorje Franks MD, both concurred that pt appears to meet 27-65 criteria requiring psychiatric hospitalization as pt appears to be at risk of harm to self/others/gravely disabled due to a mental illness condition. Pt was given the [facility] prohibited belongings list while in the ED. Was patient given the Answers: Yes Inpatient Behavioral Health Prohibited Belongings List while in the ED? For inpatient Dr. Franks admission, the following psychiatrist agreed to accept patient for admission to Behavioral Health ([facility]): Type of Hold: Answers: M1/72-hour Hold Hold initiated by: Answers: Other Notes: Dana Castano LCSW Date Signed: 06/03/2018 01:06 PM Electronically Signed By:Dana Castano
[2018-06-03] MEDS ORDERED: LORazepam 1 MG TAB PO ONE (15:05)
[2018-06-03] MEDS ORDERED: MAGNESIUM HYDROXIDE 30 ML UDCUP PO PRN (17:02)
[2018-06-03] MEDS ORDERED: OLANZapine DISINTEGR 10 MG TAB PO PRN (17:02)
[2018-06-03] MEDS ORDERED: MAG HYDROX/AL HYDROX/SIMETH 30 ML UDCUP PO PRN (17:02)
[2018-06-03] MEDS ORDERED: ONDANSETRON DISINTEGRATING 4 MG TAB PO PRN (20:33)
[2018-06-04] MEDS: LORazepam 0.5 MG TAB PO PRN ×3 (06:29→20:53)
[2018-06-04] MEDS: NICOTINE POLACRILEX 2 MG GUM B PRN ×8 (06:29→20:56)
--- NOTE | 2018-06-04 07:28 | ASMTBHMTP ---
Master Treatment Plan Master Treatment Plan Answers: Depressed Mood without for: Suicidal Ideation Date: 06/03/2018 Diagnosis on Admission: Unspecified Bipolar and Related Disorder 296.80 (F31.9) Expected length of stay: 3-5 days Reason for admission: Notes: Per Report: Pt is a 27 male who presents to the ED voluntarily. PT reports he called 911 because he was hearing voices and he had been here 1 week ago, but left after a day because he was feeling better. PT stated he is no longer using drugs, and that he has been clean for 2 weeks now. 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 He stated he didnt want to put her down as next of kin because she doesnt want to possibly get stuck paying hospital bill. PT said he grew up in [place], [place] and that his father of Su Gehrigs disease and his mother is living in [place] but has dementia. PT reported that he has a half - sister that lives in [place]. PT stated he had been involved with some drug dealers in [place] and that he had to end that life style. Patient's stated presenting problems: Notes: "I feel like there are demons in my head on a daily basis." Patient's goals for treatment: Notes: "to be on medications and have the voices stop." Patient's strengths: Notes: None Identify supports outside of hospital: Notes: family, Aunt lives in [place] and rest of my family lives in [place] Discharge criteria: Notes: Suicidal Ideation will resolve and patient will have a plan to safely manage recurrent suicidal ideation. Initial disposition plan/considerations: Notes: Plan to discharge to [place], [place]. Client requested a couple days worth of meds prior to discharge.* Master Treatment Plan Required Signatures Psychiatrist signature: Answers: Psychiatrist: RN on-shift signature: Answers: RN: Patient signature: Answers: Patient: Date Signed: 06/04/2018 07:27 AM Electronically Signed By:Ramírez Grimes
--- NOTE | 2018-06-04 09:53 | PDMN ---
Medical Necessity Medical necessity: [facility] [id number] Bipolar Disorders, Adult: Inpatient Care: 27 yo w / unspecified bipolar and related d/o, suicidal ideation, on M1 hold, homeless.
[2018-06-04] MEDS: LURASIDONE HCL 80 MG TAB PO SCH (10:57)
[2018-06-04] MEDS: NICOTINE 14 MG/24 HR PATCH TD SCH (10:57)
--- NOTE | 2018-06-04 11:43 | BAPA ---
DATE OF SERVICE: 06/04/2018 CHIEF COMPLAINT: "I just really needed to get back on my meds." HISTORY OF PRESENT ILLNESS: Patient is a 27-year-old male with a history of schizoaffectiv e disorder. He was admitted to this service from 05/25 to 05/27/2018, after stating he had been off his medications and presented to [facility] Emergency Department and then our emergency department . He stated he was hearing voices telling him to kill himself. He was admitted here for 3 days, sta rted back on his Latuda and discharged in much improved condition. He states he then went and stayed at the prison for several days but cannot explain why he did not take his medications. He initiall y states that he ran out. Then when I informed him that he clearly had enough medications, he states that he lost the bottle. He states that he wants to be back on lithium, Suboxone, and Latuda. I wa s very clear with him we would not be putting him back on Suboxone, but that he could go back on lith ium and Latuda if he needed to. 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 He presented to the emergency department last night repor ting auditory hallucinations telling him to kill himself and was readmitted on an M1 hold. There are no other intervening points of history, except that he denies any drug use of any kind since release , but his urine drug screen was positive for marijuana. He acknowledges using this. PAST PSYCHIATRIC HISTORY: The patient has had numerous previous psychiatric hospitalizations. Last was here last week. He is not connected to any outpatient services. ALLERGIES: Aripiprazole. CURRENT MEDICATIONS: Most recently, he was taking Latuda 80 mg daily. PAST MEDICAL HISTORY: Noncontributory. SOCIAL HISTORY: Patient is homeless, receives social security disability income for his schizoaffect damir disorder. He has a history of polysubstance dependence, most recently using methamphetamine, gustavo sara and marijuana. He denies any legal problems. He has no active natural supports. 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 ADMITTING LABORATORY: CBC shows a white count up at 10.39. Serum chemistry showed a sodium low at 1 34, otherwise normal. Lipid profile shows no significant abnormalities. Urine drug screen is positi ve for marijuana. MENTAL STATUS EXAMINATION: Reveals a well-groomed, well-nourished, pleasant, and cooperative Caucasi an male. He interacts well with the examiner, displaying good eye contact, and a calm and pleasant d emeanor. He is alert and cooperative, displaying no evidence of disorganized thought or attention to internal stimuli. He endorses ongoing auditory hallucinations telling him to kill himself. His aff ect is euthymic, stable and appropriate. His mood is described as "a lot better today." His thought process is linear and goal directed. His thought content reveals no evidence of psychosis. He is a lert and oriented to person, place, time, and situation, and his sensorium is clear. He continues to endorse thoughts of suicide and reports the command auditory hallucinations to kill himself. When I state that his thought content reveals no evidence of psychosis, I mean outwardly as he does not kendall ear to attend to internal stimuli nor does he appear distracted or disorganized. His intellect appea rs to be average. His insight and judgment appear to be good. IMPRESSION: Schizoaffective disorder, bipolar type, chronic with acute exacerbation; acute suicidali ty; homelessness; lack of supports; amphetamine use disorder, severity unknown; cocaine use disorder, severity unknown; marijuana use disorder, moderate to severe. PLAN: 1. Admit to the behavioral services inpatient unit on an M1 hold. 2. Restart Latuda. Start lithium carbonate ER 600 mg at h.s. per patient request. I discussed with the patient at length that he will need to be compliant with the medication and seek followup. He i s adamant that he will do so in [place], [place]. I have also ordered a TSH and reviewed with him at length the risks, benefits, and alternatives of this medication. 3. We will continue discharge planning with any assistance we can provide him to achieve his goal of reaching [place]. 4. Estimated length of stay is 2-3 days. /[id number]/MODL
[2018-06-04] MEDS: ACETAMINOPHEN 325 MG TAB PO PRN (15:29)
[2018-06-04] MEDS: LITHIUM CARBONATE ER 300 MG TAB PO SCH (20:53)
[2018-06-04] MEDS: ZOLPIDEM TARTRATE 5 MG TAB PO PRN (20:53)
[2018-06-05] MEDS: LORazepam 0.5 MG TAB PO PRN ×2 (06:45→12:51)
[2018-06-05] MEDS: NICOTINE POLACRILEX 2 MG GUM B PRN ×3 (06:45→17:31)
[2018-06-05] MEDS: NICOTINE 14 MG/24 HR PATCH TD SCH (07:43)
[2018-06-05] MEDS: LURASIDONE HCL 80 MG TAB PO SCH (07:45)
[2018-06-05] MEDS ORDERED: LORazepam 1 MG TAB ONE (12:49)
--- NOTE | 2018-06-05 14:50 | ASMTBHDC ---
Notes Note: Notes: Pt. reports feeling "good". Pt. stated he slept "okay" and is eating well. Pt. reports no issues with his current medications. Pt. reports suicidal ideation, rating himself an 8/10, and reporting he would hang himself. Pt. contracted for safety with CC. Pt. reports having trouble sleeping, reporting he only slept two hours. Staff report pt. sleeping 10.5 hours. Pt. reports hearing voices, who "like to degrade me a lot" adding it is a "group of voices". Pt. stated the voices "latch on to me and I feel uncomfortable". Pt. reports being blessed by a yarn texture machine operator three times. Pt. reports paranoia, stating "these people are watching and continuing to follow me". Pt. reports feeling safe while on the unit. Pt. stated he ordered his social security pay card yesterday. Pt. stated he was "hoping to discharge on Thursday". Pt. stated his SS pay card will arrive at the hospital by Thursday. Pt. presents as alert, guarded, fair eye contact, struggling to hear or understand CC, cooperative and appearing to have secondary gains. Staff report pt. sleeping 10.5 hours and being medication compliant. Pt. reported to RN he was a 5/10 on the SP scale. Pt. completed safety plan. Date Signed: 06/05/2018 02:49 PM Electronically Signed By:Neli Crowell
[2018-06-05] MEDS: ACETAMINOPHEN 325 MG TAB PO PRN (15:08)
--- NOTE | 2018-06-05 16:36 | SOAPPROG ---
SOAP Progress Note Assessment/Plan: Assessment: 27 yo homeless man with h/o schizoaffective do and polysubstance dependence was discharged from [facility] on 05/27/18, stopped taking meds and started using drugs, then returned to ED on 06/03/18 c/o SI. Plan: 06/05/18 16:[address] Franks started patient on Latuda and [place]. MD explained to patient risks and potential for adverse effects when taking these psych meds and also using illicit and recreational drugs, such as meth, THC and cocaine (all of which patient had abused in past). MD also warned patient about potential adverse effects that can occur from lithium toxicity and need to have routine follow up, including labs and med adjustments when needed. Patient verbalized understanding of all this advice. He claims he will find providers when he gets to [place]. 2. Patient slept 10.5 hrs last night and has been eating 100% of meals. 3. Patient waiting for new card to collect his [employer] funds on 06/09/18. He plans to leave [place] and go to [place], [place]. 4. Voluntary Subjective: Patient requesting more coffee this AM. He denies any physical complaints and denies any SE's from new meds. He claims he "ran out" of meds after d/c from [facility] on 05/27/18, but then says he "[facility] his bottle" [facility]. His UDS was positive for THC in ED. Patient told MD he has a "paying job" at the "[employer]" in [place], [place]. He claims that's where he's going when he leaves hospital this time. Objective: Vital Signs Temp Pulse Resp BP Pulse Ox 36.4 C 78 14 116/66 98 06/05/18 06:00 06/05/18 06:00 06/05/18 06:00 06/05/18 06:00 06/05/18 06:00 MSE: Affect: Euthymic Mood: "Good" TP: Tangential, loose TC: Denies any SI/ HI Insight/Judgment: Poor - Time Spent With Patient Time Spent With Patient: 15" - Pending Discharge Pending Discharge Within 24 Hours: No Pending Discharge Within 48 Hours: No ICD10 Worksheet Patient Problems: Problems Problem Status Onset Schizoaffective disorder, bipolar type Acute Suicidal ideation Acute
[2018-06-05] MEDS: IBUPROFEN 600 MG TAB PO PRN (17:01)
[2018-06-05] MEDS: LITHIUM CARBONATE ER 300 MG TAB PO SCH (19:12)
[2018-06-05] MEDS: LORazepam 1 MG TAB PO PRN (19:12)
[2018-06-05] MEDS: ZOLPIDEM TARTRATE 5 MG TAB PO PRN (19:14)
[2018-06-06] MEDS: LORazepam 1 MG TAB PO PRN ×2 (06:25→12:39)
[2018-06-06] MEDS: NICOTINE POLACRILEX 2 MG GUM B PRN ×8 (06:26→17:29)
[2018-06-06] MEDS: ACETAMINOPHEN 325 MG TAB PO PRN (06:50)
[2018-06-06] MEDS: NICOTINE 14 MG/24 HR PATCH TD SCH (08:14)
[2018-06-06] MEDS: LURASIDONE HCL 80 MG TAB PO SCH (08:15)
[2018-06-06] MEDS: IBUPROFEN 600 MG TAB PO PRN (11:11)
--- NOTE | 2018-06-06 14:33 | ASMTBHDC ---
Notes Note: Notes: Pt. requested to speak with CC. Pt. reports feeling "okay". Pt. stated he slept "good" adding "ambian helped". Pt. reports no issues with his current medications. Pt. stated he has gone to all of the groups and is eating well. Pt. reports hearing "some voices" adding the voices "degread me to the point where I don't feel good". Pt. stated he hopes the voices are gone by Thursday. Pt. stated his SS pay card may arrive at [facility] tomorrow, but stated he "might not be ready to go". Pt. reports SI, rating himself a 5/10, with no plan and pt contracted for safety with CC. Pt. reports paranoia, stating "think when I move it will get better" adding his paranoia is from his interactions with people who use drugs and "gang members". Pt. 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 Pt. asked if staff could reserve his bus ticket online, stating it is cheaper online than at the station. Pt. denied HI. Pt. approached CC later in the day stating he would like to discharge. Pt. stated he will stop by [facility] tomorrow at 2pm to merchandise pickup/receiving associate his mail. Pt. stated he would like to discharge because he is "too anxious", and adding he wants to smoke. Pt. presents as alert, anxious, guarded, fair eye contact, cooperative and possibly seeking secondary gains while being in the hospital. Staff report pt. sleeping 12 hours and being medication compliant. Date Signed: 06/06/2018 02:32 PM Electronically Signed By:Neli Crowell
[2018-06-06] MEDS: OLANZapine 5 MG TAB PO PRN (15:33)
--- NOTE | 2018-06-06 17:21 | SOAPPROG ---
SOAP Progress Note Assessment/Plan: Assessment: 27 yo homeless man with h/o schizoaffective do and polysubstance dependence was discharged from on 05/27/18, stopped taking meds and started using drugs, then returned to ED on 06/03/18 c/o SI. Plan: 06/05/18 16:[address] Franks started patient on Latuda and [place]. MD explained to patient risks and potential for adverse effects when taking these psych meds and also using illicit and recreational drugs, such as meth, THC and cocaine (all of which patient had abused in past). MD also warned patient about potential adverse effects that can occur from lithium toxicity and need to have routine follow up, including labs and med adjustments when needed. Patient verbalized understanding of all this advice. He claims he will find providers when he gets to [place]. 2. Patient slept 10.5 hrs last night and has been eating 100% of meals. 3. Patient waiting for new card to collect his SSI funds on 06/09/18. He plans to leave [place] and go to [place], [place]. 4. Voluntary 06/06/18 17:14 1. [place] level tomorrow. 2. Patient asked to leave hospital today b/c "I need a smoke." However, later he said he wanted to stay until Thursday b/c his SSI card was being mailed to unit and he needed it to pay for his trip to [place]. 3. Patient told staff he was hearing "demons" however, when MD spoke to him, he denied AH and was just agitated about being locked up and wanting to leave. MD ordered Olanzapine PRN for agitation/psychosis. 4. Yesterday, patient asked MD to increase his Ambien, which MD refused to do given he had not had any trouble sleeping since admission. Last night, patient slept 12 hrs. Patient repeatedly asks for more meds even when there doesn't seem to be any indication. Patient told staff yesterday he had LIRA and requested MD prescribe Lortab. MD explained why it wasn't helpful for patient to take narcotics or use more than necessary amounts of medications given risks for SE' s and drug-drug interactions. Patient took ibuprofen instead at MD's suggestion and reported it was effective. Patient needs frequent reminders and education around overuse of prescription medications. 5. Voluntary status Subjective: Patient initially requested to discharge despite MD's recommendation he stay until tomorrow. MD explained that patient was due for lithium level in AM which was important to determine the right dose of medication. MD reminded patient he will need to have routine lab work and monitoring by physician while he is on lithium. He told MD, "I need a smoke" and said he couldn't handle being on unit anymore. Later, patient agreed to stay overnight b/c he needs to get his SSI card in order to access funds to pay for bus ticket to [place]. Objective: Vital Signs Temp Pulse Resp BP Pulse Ox 36.9 C 77 16 115/65 97 06/06/18 06:00 06/06/18 06:00 06/06/18 06:00 06/06/18 06:00 06/06/18 06:00 MSE: Affect: Euthymic Mood: "OK" TP: Tangential, disorganized TC: Denies any SI/HI Insight/Judgment: Poor - Time Spent With Patient Time Spent With Patient: 15" - Pending Discharge Pending Discharge Within 24 Hours: Yes Pending Discharge Date: 06/07/18 (Likely d/c tomorrow) Pending Discharge Time: 11:00 ICD10 Worksheet Patient Problems: Problems Problem Status Onset Schizoaffective disorder, bipolar type Acute Suicidal ideation Acute
[2018-06-06] MEDS: LITHIUM CARBONATE ER 300 MG TAB PO SCH (17:47)
[2018-06-07] MEDS: NICOTINE POLACRILEX 2 MG GUM B PRN ×2 (06:05→10:11)
[2018-06-07] MEDS: LORazepam 1 MG TAB PO PRN (06:06)
[2018-06-07 06:45] VITALS: BP 109/64
[2018-06-07] MEDS: LURASIDONE HCL 80 MG TAB PO SCH (08:09)
[2018-06-07] MEDS: NICOTINE 14 MG/24 HR PATCH TD SCH (08:09)
[2018-06-07] MEDS: OLANZapine 5 MG TAB PO PRN (08:38)
--- NOTE | 2018-06-07 18:13 | BDS ---
REASON FOR ADMISSION: Patient is a 27-year-old male known to us from a recent admission. He has a history of schizoaffective disorder and homelessness. He recently came to this community and was seen at [facility] Emergency [facility], started back on his Latuda. He then came to [place], reported being suicidal the next day, and was admitted to our service for approximately 4 days. He was stabilized at that time and discharged to the community per his request. He was then in the community from 05/30-06/03/18, at which time he states he did not take his medications or took all of his medications or lost his medications as his story varied over time. Regardless, he stated that he was hearing voices telling him to kill himself and was readmitted to the emergency department. While in the emergency department, I was called and his case was presented. There was some confusion over the history and I was told that this was not the patient who was recently discharged from our unit. I therefore admitted the patient to our unit due to his history of mental illness and suicidality. When I arrived on the unit and realized it was the patient we had just discharged, I was somewhat surprised and would likely not have re-admitted him given the high degree of secondary gain he had during his first hospitalization. Regardless, I evaluated the patient thoroughly and considered his request to restart his medications. ADMITTING DIAGNOSES: Schizoaffective disorder, bipolar type, chronic with acute exacerbation, acute suicidality; homelessness; lack of supports; amphetamine use disorder, severity unknown; cocaine use disorder, severity unknown; and marijuana use disorder, [id number]; possible malingering. PHYSICAL EXAMINATION: Was not performed due to proximity to his previous admission. LAB ON ADMISSION: CBC showed a white count up at 10.39, otherwise normal. Serum chemistries were normal. Lipid profile was normal. TSH was normal. Urine drug screen was positive for marijuana. HOSPITAL COURSE: Patient was admitted to the [facility] inpatient unit on an M1 hold. He was immediately converted to a voluntary status. He was irritable, demanding of staff, but always very pleasant and respectful with me. He continually requested opioid pain medications, stating that he was supposed to take Suboxone. He did this on his previous admission and I confronted him that he clearly did not take Suboxone and he quit asking for it. He did continue to ask for Lortab, hydrocodone and oxycodone, despite being consistently denied. He was in reasonable behavioral control on the unit , though participated minimally with therapies. He stated that he did not receive his social security debit card that has he was supposed to have during his first day and so he called them again and it was going to be delivered sometime after the 09 of June. He gave the hospital address for this and stated to us at the end of the week that he would have to wait at least another week in the hospital in order to receive this card. I told him it would be unlikely that this would happen, but that we would see how he did. He requested to be restarted on his Latuda and lithium as he states he always did better when he took lithium. Patient's hospitalization was uncomplicated except by his demanding and drug- seeking behaviors. He invested little to nothing in therapies and stated on several occasions that he did not care to participate in any of those. On the day of discharge he stated that he needed to be hospitalized for another 4-5 days in order to receive his social security debit card. He was interviewed by the treatment team who voiced our concern that this was only temporary housing and that he had no further goals for inpatient psychiatric care. It was at this time that he stated he was having auditory hallucinations telling him to kill himself and I stated very clearly to him that I believe that this was factitious as he had not reported this in a number of days. It was unanimously agreed to proceed with discharge as planned. Condition at discharge was stable. Despite his statements about auditory hallucinations that I believe are factitious and represent malingering. He is otherwise pleasant and cooperative and was not angry or confrontational at time of discharge. DISCHARGE MEDICATIONS: [place] carbonate ER 600 mg daily and Latuda 80 mg daily. The patient was only given 14 tabs of the lithium carbonate as I initially was doubtful he would take it as an outpatient. After the patient left, we got his level back that had been drawn earlier in the day and it was less than detectable. This indicates then that he was cheeking the lithium throughout his stay and it is impossible to say whether he was taking the Latuda either. He was given 7 tablets of his Ambien per his request as well. He was not given any clonazepam or other scheduled substances. Discharge medications were Latuda 80 mg daily, lithium carbonate ER 600 mg at bedtime, and zolpidem 5 mg at bedtime. DISCHARGE DIAGNOSES: Schizoaffective disorder by history; suicidality; homelessness; malingering. The patient's attitude at discharge was happy. He was not upset about being discharged. LEGAL STATUS: Patient was a voluntary patient throughout his stay after arrival on an M1 hold. There are no pending labs or studies at time of discharge. Patient was full code throughout his stay. Patient was given nicotine, alcohol use, cannabis, and metabolic screenings and declined further followup for these issues. Note that this patient was clearly malingering. This was his 2nd admission in less than 2 weeks. He did not take his medications nor does he apparently intend to take any in the future. He is clearly drug seeking and looking for secondary gain for housing. He states now that he is planning to go to [place], [place] to stay at a homeless care home there. It is my strong recommendation that these factors be considered on future encounters. /[id number]/MODL MTDD
== END 2018-06-07 11:55 | disposition home or self-care (01) | DRG 885 ==
LOC: EDUNIT# → EEVIPCON 20:15 → BBEH 06-03 15:40
PROVIDERS: ADMIT Psychiatry & Neurology Psychiatry; ATTEND Psychiatry & Neurology Psychiatry
DX: F25.0 Schizoaffective disorder, bipolar type (principal); R45.851 Suicidal ideations; F15.90 Other stimulant use, unspecified, uncomplicated; F14.90 Cocaine use, unspecified, uncomplicated; F12.90 Cannabis use, unspecified, uncomplicated; F17.210 Nicotine dependence, cigarettes, uncomplicated; Z59.0 Homelessness
CPT/HCPCS: 80305; G0480

== ENCOUNTER 2018-06-10 01:20 | Emergency (ER) | payer OTHER, MEDICAID ==
[2018-06-10] MEDS ORDERED: OLANZapine 5 MG TAB PO ONE (01:24)
[2018-06-10] MEDS ORDERED: LORazepam 1 MG TAB PO ONE (01:25)
--- NOTE | 2018-06-10 01:27 | EDPHY ---
H & P Time Seen by Provider: 06/10/18 01:25 HPI/ROS: HPI CHIEF COMPLAINT: Anxiety HISTORY OF PRESENT ILLNESS: 27-year-old male, presents emergency room the homeless correction by EMS for an anxiety attack. Patient reports that he ran a Zyprexa recently this helped some usually state Calm and sleep. If the correction tonight developed an anxiety attack. States he feels very anxious. Denies any chest pain or shortness of breath. Denies abdominal pain, fever or vomiting. Main complaint anxiety. Past Medical History: Bipolar disorder, schizoaffective disorder, anxiety Past Surgical History: No recent surgery Social History: Smokes tobacco. Denies illicit drugs or alcohol. Homeless. Family History: Noncontributory ROS REVIEW OF SYSTEMS: 10 Systems were reviewed and negative with the exception of the elements mentioned in the history of present illness. Exam Constitutional nontoxic, somewhat anxious, triage nursing summary reviewed, vital signs reviewed, awake/alert. Eyes normal conjunctivae and sclera, EOMI, PERRLA. HENT normal inspection, atraumatic, moist mucus membranes, no epistaxis, neck supple/ no meningismus, no raccoon eyes. Respiratory clear to auscultation bilaterally, normal breath sounds, no respiratory distress, no wheezing. Cardiovascular rate normal, regular rhythm, no murmur, no edema, distal pulses normal. Gastrointestinal soft, non-tender, no rebound, no guarding, normal bowel sounds, no distension, no pulsatile mass. Genitourinary no CVA tenderness. Musculoskeletal no midline vertebral tenderness, full range of motion, no calf swelling, no tenderness of extremities, no meningismus, good pulses, neurovascularly intact. Skin pink, warm, & dry, no rash, skin atraumatic. Neurologic awake, alert and oriented x 3, AAOx3, moves all 4 extremities equally, motor intact, sensory intact, CN II-XII intact, normal cerebellar, normal vision, normal speech. Psychiatric anxious denies SI or HI, denies auditory visual hallucinations Heme/Lymph/Immune no lymphadenopathy. Differential Diagnosis: Includes but is not limited to in a particular order acute anxiety attack, panic attack, underlying mental illness bipolar disorder, mood disorder, depression Medical Decision Making: Plan for this patient 1 mg p.o. Ativan, 5 mg p. O. Zyprexa and re-evaluate. Re-evaluation: 0239AM: Patient re-evaluated this time resting comfortably no acute distress. Patient feels much better after 1 mg p.o. Ativan and 5 mg p. O. Zyprexa. Anxiety is well controlled. Denies any complaints at this time. Patient can be safely discharged to the correction. Source: Patient, EMS - Medical/Surgical History Hx Asthma: No Hx Chronic Respiratory Disease: No Hx Diabetes: No Hx Cardiac Disease: No Hx Renal Disease: No Hx Cirrhosis: No Hx Alcoholism: No Hx HIV/AIDS: No Hx Splenectomy or Spleen Trauma: No Other PMH: IVDA, bipolar with psychotic features, meth use, homeless - Social History Smoking Status: Current every day smoker Constitutional: Initial Vital Signs Temperature (C) 36.7 C 06/10/18 01:36 Heart Rate 100 06/10/18 01:36 Respiratory Rate 16 06/10/18 01:36 Blood Pressure 122/81 H 06/10/18 01:36 O2 Sat (%) 100 06/10/18 01:36 O2 Delivery Mode Room Air Allergies/Adverse Reactions: aripiprazole [From [facility]] Allergy (Verified 06/02/18 20:44) Home Medications: Medication Instructions Recorded [place] Carbonate ER [Lithobid 300 600 mg PO HS #14 tab 18 mg (*)] Zyprexa 06/10/18 Medical Decision Making - Data Points Medications Given: Discontinued Medications Lorazepam (Ativan) 1 mg PO ONCE ONE Stop: 06/10/18 01:26 Last Admin: 06/10/18 01:31 Dose: 1 mg Olanzapine (Olanzapine) 5 mg PO ONCE ONE Stop: 06/10/18 01:25 Last Admin: 06/10/18 01:31 Dose: 5 mg Departure - Departure Disposition: Home, Routine, Self-Care Clinical Impression: Anxiety attack Condition: Good Instructions: Anxiety (ED) Referrals: NONE *PRIMARY CARE P,. [Primary Care Provider] - As per Instructions [facility] [Clinic] - As per Instructions
[2018-06-10 02:46] VITALS: BP 131/74
== END 2018-06-10 02:46 | disposition home or self-care (01) ==
LOC: EDBD → EDUNIT#
DX: F41.8 Other specified anxiety disorders (principal); Z59.0 Homelessness

== ENCOUNTER 2018-08-05 08:27 | Emergency (ER) | payer MEDICAID, OTHER ==
--- NOTE | 2018-08-05 09:09 | EDPHY ---
H & P Stated Complaint: hearing voices, SI Time Seen by Provider: 08/05/18 08:48 HPI/ROS: CHIEF COMPLAINT: Suicidal ideation, auditory hallucination HISTORY OF PRESENT ILLNESS: 27-year-old male history of schizoaffective disorder, bipolar type, homelessness, walked to the ER complaining of increasing audio hallucinations telling him to hang himself. He has not attempted this. He has no complaints of physical pain or discomfort. Denies self-injurious behavior. REVIEW OF SYSTEMS: 10 systems reviewed and negative with the exception of the elements mentioned in the history of present illness PAST MEDICAL & SURGICAL HISTORY: Schizoaffective disorder SOCIAL HISTORY: Homeless. Denies acute alcohol or drug use. Denies methamphetamine abuse. PHYSICAL EXAM (Prior to examination, patient consented to physical exam, hands were washed and my usual and customary physical exam procedures followed) 1) GENERAL: poorly kept, foul smelling, alert and oriented. Appears to be in no acute distress. Appears to be responding to internal stimuli 2) HEAD: Normocephalic, atraumatic 3) HEENT: Pupils equal, round, reactive to light bilaterally. Sclera anicteric. 4) NECK: Full range of motion, no meningeal signs. 5) LUNGS: Clear auscultation bilaterally, no wheezes, no rhonchi, no retractions. 6) HEART: Regular rate and rhythm, no murmur, no heave, no gallop. 7) ABDOMEN: No guarding, no rebound, no focal tenderness, negative McBurney's, negative Levy's, negative Rovsing's, negative peritoneal sign, 8) MUSCULOSKELETAL: Moving all extremities, no focal areas of tenderness, no obvious trauma. No peripheral edema or discoloration. 9) BACK: No CVA tenderness, no midline vertebral tenderness, no fluctuance, no step-off, no obvious trauma, no visual or palpable abnormality. 10) SKIN: No rash, no petechiae. 11) Psychiatric: Patient is oriented X 3, there is no agitation. Appears to be responding to internal stimuli DIFFERENTIAL DIAGNOSIS: In no particular order including but not limited to suicidal ideation, homicidal ideation, illicit drug use, psychosis - Personal History Current Tetanus/Diphtheria Vaccine: Yes Current Tetanus Diphtheria and Acellular Pertussis (TDAP): Yes - Medical/Surgical History Hx Asthma: No Hx Chronic Respiratory Disease: No Hx Diabetes: No Hx Cardiac Disease: No Hx Renal Disease: No Hx Cirrhosis: No Hx Alcoholism: No Hx HIV/AIDS: No Hx Splenectomy or Spleen Trauma: No Other PMH: IVDA, bipolar with psychotic features, meth use, homeless, PTSD - Social History Smoking Status: Current every day smoker Constitutional: Initial Vital Signs Temperature (C) 36.6 C 08/05/18 08:33 Heart Rate 86 08/05/18 08:33 Respiratory Rate 16 08/05/18 08:33 Blood Pressure 120/90 H 08/05/18 08:33 O2 Sat (%) 94 08/05/18 08:33 O2 Delivery Mode Room Air Allergies/Adverse Reactions: aripiprazole [From Abilify] Allergy (Verified 08/05/18 08:33) olanzapine [From Zyprexa] Allergy (Verified 08/05/18 08:33) Medical Decision Making ED Course/Re-evaluation: 9:07 a.m.: I reviewed the patient's old medical records including prior hospitalizations at [facility] psychiatric inpatient unit. Consultation Dr. Sowmya Mercado, secondary supervising physician, patient was placed on M1 hold as I think he presents an imminent danger to himself, endorses suicidal ideation with plan to hang himself. 1214 pm: Patient has been evaluated by mental health kindergarten teacher assistant Grace, spoke with her on-call psychiatrist. Patient has a history of suspected malingering behavior and her mental health kindergarten teacher assistant the patient's current behavior suspected represent malingering behavior and they recommended discharge and she vacating the M1 hold. I re-interviewed the patient he denies suicidal ideation , denies homicidal ideation. Plan will be discharge with follow-up at [facility]. - Data Points Laboratory Results: Laboratory Results 08/05/18 09:00 08/05/18 09:00 08/05/18 08/05/18 08/05/18 09:05 09:00 09:00 WBC 5.71 10^3/uL 10^3/uL (3.80-9.50) RBC 5.71 10^6/uL 10^6/uL (4.40-6.38) Hgb 16.3 g/dL g/dL (13.7-17.5) Hct 50.0 % % (40.0-51.0) MCV 87.6 fL fL (81.5-99.8) MCH 28.5 pg pg (27.9-34.1) MCHC 32.6 g/dL g/dL (32.4-36.7) RDW 13.8 % % (11.5-15.2) Plt Count 388 10^3/uL 10^3/uL (150-400) MPV 9.4 fL fL (8.7-11.7) Neut % (Auto) Not Reported Lymph % (Auto) Not Reported [place]renshaw % (Auto) Not Reported Eos % (Auto) Not Reported Baso % (Auto) Not Reported Nucleat RBC Rel Count Not Reported Absolute Neuts (auto) Not Reported Absolute Lymphs (auto) Not Reported Absolute Monos (auto) Not Reported Absolute Eos (auto) Not Reported Absolute Basos (auto) Not Reported Absolute Nucleated RBC Not Reported Immature Gran % Not Reported Seg Neutrophils % 56.6 % % Band Neutrophils % 0.0 % % Lymphocytes % 35.4 % % Monocytes % 5.0 % % Eosinophils % 2.0 % % Basophils % 1.0 % % Metamyelocytes % 0.0 % % Myelocytes % 0.0 % % Promyelocytes % 0.0 % % Blast Cells % 0.0 % % Immature Gran # Not Reported Absolute Seg Neuts 3.23 10^3/uL 10^3/uL (1.70-6.50) Absolute Band Neuts 0.00 10^3/uL 10^3/uL (0.00-0.70) Absolute Lymphocytes 2.02 10^3/uL 10^3/uL (1.00-3.00) Absolute Monocytes 0.29 10^3/uL L 10^3/uL (0.30-0.80) Absolute Eosinophils 0.11 10^3/uL 10^3/uL (0.03-0.40) Absolute Basophils 0.06 10^3/uL 10^3/uL (0.02-0.10) Absolute Metamyelocyte 0.00 10^3/mL 10^3/mL (0.00-0.00) Absolute Myelocytes 0.00 10^3/mL 10^3/mL (0.00-0.00) Absolute Promyelocytes 0.00 10^3/uL 10^3/uL (0.00-0.00) Absolute Plasma Cells 0.00 10^3/uL 10^3/uL (0.00-0.00) Nucleated RBCs 0 /100 WBC /100 WBC (0-0) Atypical Lymphocytes 1+ H Absolute Blast Cells 0.00 10^3/uL 10^3/uL (0.00-0.00) Plasma Cells % 0.0 % % Platelet Estimate ADEQUATE (ADEQ) Sodium 140 mEq/L mEq/L (135-145) Potassium 4.9 mEq/L mEq/L (3.5-5.2) Chloride 100 mEq/L mEq/L (97-110) Carbon Dioxide 29 mEq/l mEq/l (22-31) Anion Gap 11 mEq/L mEq/L (6-14) BUN 14 mg/dL mg/dL (7-23) Creatinine 0.7 mg/dL mg/dL (0.7-1.3) Estimated GFR > 60 Glucose 77 mg/dL mg/dL (70-100) Calcium 10.2 mg/dL mg/dL (8.5-10.4) Salicylates < 1.0 mg/dL L mg/dL (2.0-20.0) Urine Opiates Screen NEGATIVE (NEGATIVE) Acetaminophen < 10 mcg/mL L mcg/mL (10-30) Urine Barbiturates NEGATIVE (NEGATIVE) Ur Phencyclidine Scrn NEGATIVE (NEGATIVE) Ur Amphetamine Screen NEGATIVE (NEGATIVE) U Benzodiazepines Scrn NEGATIVE (NEGATIVE) Urine Cocaine Screen NEGATIVE (NEGATIVE) U Marijuana (THC) Screen NON-NEGATIVE H (NEGATIVE) Ethyl Alcohol < 10 mg/dL mg/dL (0-10) Medications Given: Discontinued Medications Lorazepam (Ativan) 1 mg PO EDNOW ONE Stop: 08/05/18 09:17 Last Admin: 08/05/18 09:24 Dose: 1 mg Departure - Departure Disposition: Home, Routine, Self-Care Clinical Impression: Schizoaffective disorder, bipolar type, Malingering Condition: Good Instructions: Schizoaffective Disorder (ED) Additional Instructions: Return to the ER immediately if you experience thoughts of hurting yourself, thoughts of hurting other people, thoughts of killing other people or killing yourself. Referrals: [facility],. [Clinic] - As per Instructions
[2018-08-05] MEDS ORDERED: LORazepam 1 MG TAB PO ONE (09:16)
[2018-08-05 09:18] LABS: PLATELET COUNT 388 10^3/uL (150-400)
[2018-08-05 13:04] VITALS: BP 111/60
--- NOTE | 2018-08-05 13:34 | ASMTTCLDSP ---
[facility] Discharge Disposition Disposition: Answers: Discharge If Answers: Yes DISCHARGED: Patient/family given suicide hotline info & SAMHSA brochure? Disposition Notes: Notes: Pt was given resources to [facility] and [facility] and was encouraged to get set up with [facility] for future care as he stated he is living here now. In the meantime, until he has services with [facility], this radio news writer encouraged pt to attend his appt with Dr. Castañeda on August 20. When pt was offered the resource for [facility] he stated, " I don't want to go there. I don't like it. I want to go to the other jail." This radio news writer discussed the importance of being consistent with his outpatient providers to help stabilize. Discharge Concerns/Recommendations: Notes: In consultation with [facility] ED physician, Sowmya Mercado MD, concurred that pt does not appear to meet 27-65 criteria requiring psychiatric hospitalization as pt does not appear to be an imminent risk of harm to self/others/gravely disabled due to a mental illness condition. IF M1 VACATED: Dr. Mercado vacated the M1 hold at 12:14 pm hrs. Date and time M1 hold 08/05/2018 12:14 PM vacated (time format is hh:mm): Date Signed: 08/05/2018 01:33 PM Electronically Signed By:Grace Suarez
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
== END 2018-08-05 13:00 | disposition home or self-care (01) ==
DX: Z76.5 Malingerer [conscious simulation] (principal); F25.9 Schizoaffective disorder, unspecified; F31.9 Bipolar disorder, unspecified; Z59.0 Homelessness
CPT/HCPCS: 80305; G0480

== ENCOUNTER 2018-09-04 08:22 | Emergency (ER) | payer MEDICAID ==
[2018-09-04] MEDS ORDERED: HALOPERIDOL 5 MG TAB PO ONE (09:03)
--- NOTE | 2018-09-04 09:03 | EDPHY ---
H & P Stated Complaint: feeling sucidal Source: Patient, RN/MD, Old records Exam Limitations: No limitations - Personal History Current Tetanus/Diphtheria Vaccine: Yes Current Tetanus Diphtheria and Acellular Pertussis (TDAP): Yes - Medical/Surgical History Hx Asthma: No Hx Chronic Respiratory Disease: No Hx Diabetes: No Hx Cardiac Disease: No Hx Renal Disease: No Hx Cirrhosis: No Hx Alcoholism: No Hx HIV/AIDS: No Hx Splenectomy or Spleen Trauma: No Other PMH: IVDA, bipolar with psychotic features, meth use, homeless, PTSD - Social History Smoking Status: Current every day smoker Time Seen by Provider: 09/04/18 08:42 HPI/ROS: HPI: This is a 27-year-old male who presents with Chief Complaint: Feeling suicidal, hearing voices Location: Psychiatric Quality: Feeling suicidal, hearing voices Duration: Since last night Signs and Symptoms: + auditory hallucinations, no visual hallucinations, + suicidal ideation with no plan, no homicidal ideation, no paranoia Timing: Acute on chronic Severity: [id number] Context: Patient has a history of schizoaffective disorder, bipolar disorder, malingering presents voluntarily with complaints of hearing command voices telling him to "kill myself." He reports that these voices started last night while he was staying at his girlfriend's house. He admits to smoking methamphetamine almost daily for the last 2 weeks. Last use was 2 days ago. While in the emergency room patient asked for a blanket and advised if he felt like hurting himself it was not safe to give to him. He then advised to me that he was not feeling suicidal anymore. He then asked for breakfast tray. He reports that he has been prescribed multiple psychiatric medications but Latuda "makes him feel bad", he is allergic to Zyprexa but cannot tell me the adverse effects, he does not like Geodon. He reports that he does have a prescription for Paxil and Ativan. Has not taken it in more than 1 week. Patient reports that he is able to return to his girlfriend's place. They are not currently fighting and are "on good terms."Chart review shows that this patient was seen in this emergency room on August 05, 2018 with similar complaints of having command hallucinations telling him to hang himself. At that time he was evaluated by mental health and determined to be malingering with outpatient follow-up. Patient is prone to go between [place] [facility] and [facility]. He is noncompliant on his psychiatric medications. Modifying Factors: None Comment: ROS: A comprehensive 10 system review of systems is otherwise negative aside from elements mentioned in the history of present illness. MEDICAL/SURGICAL/SOCIAL HISTORY: Medical history: Schizoaffective disorder, bipolar disorder, malingering, IV drug user, posttraumatic stress disorder Surgical history: Denies Social history: Homeless. Patient's father suffered from schizophrenia. Born in [place]. Aunt lives in [place] for the last 30 years. Family history noncontributory. CONSTITUTIONAL: Polite and cooperative, tidy, adult white male, awake and alert , no obvious distress HEENT: Atraumatic and normocephalic, PERRL, EOMI. Nares patent; no rhinorrhea; no nasal mucosal edema. Tympanic membranes clear. Oropharynx clear, no exudate and moist pink mucosa. Airway patent. No lymphadenopathy. No meningismus. Cardiovascular: Normal S1/S2, regular rate, regular rhythm, without murmur rub or gallop. PULMONARY/CHEST: Symmetrical and nontender. Clear to auscultation bilaterally. Good air movement. No accessory muscle usage. ABDOMEN: Soft, nondistended, nontender, no rebound, no guarding, no peritoneal signs, no masses or organomegaly. No CVAT. EXTREMITIES: 2/2 pulses, strength 5/5, no deformities, no clubbing, no cyanosis or edema. NEUROLOGICAL: no focal neuro deficits. GCS 15. SKIN: Warm and dry, tattoos and excoriations noted on bilateral forearms, no erythema. no rash. Good capillary refill. PSYCH: Good eye contact, no flight of ideas, organized thought process, fair insight and judgment, + auditory hallucinations, no visual hallucinations, + suicidal ideation with no plan, no homicidal ideation, no paranoia ([place]) Constitutional: Initial Vital Signs Temperature (C) 36.4 C 09/04/18 08:27 Heart Rate 78 09/04/18 08:27 Respiratory Rate 18 09/04/18 08:27 Blood Pressure 126/69 H 09/04/18 08:27 O2 Sat (%) 99 09/04/18 08:27 O2 Delivery Mode Room Air Allergies/Adverse Reactions: aripiprazole [From Abilify] Allergy (Verified 08/05/18 08:33) olanzapine [From Zyprexa] Allergy (Verified 08/05/18 08:33) Home Medications: Medication Instructions Recorded Xanax 09/04/18 Medical Decision Making ED Course/Re-evaluation: Vital signs reviewed and stable upon arrival. Labs and urine drug screen ordered. Patient is having mild command hallucinations but relatively good insight and judgment. He has a safe place to go and does not currently want to cause harm or and is life. I do not believe that he meets M1 hold criteria. I suspect that methamphetamine use over the last 2 weeks has increased his auditory hallucinations. P.o. Haldol 5 mg given. Will ask [facility] to voluntarily see patient. 0915: Urine drug screen positive for amphetamines and marijuana. 0950: Labs reviewed and grossly unremarkable. Medically clear for mental health evaluation. [facility] notified. 1430: Spoke with [facility], Jose, who reports that Dr. Franks recommends discharge home. Reassessed patient and he currently denies any suicidal thoughts or a plan. Patient is only asking for "a meal tray." This patient was seen under the supervision of my secondary supervising physician. I evaluated care for this patient with attending. (Vicky Thapa) Differential Diagnosis: Differential diagnosis includes but is not limited to major depression, anxiety disorder, schizophrenia, bipolar disorder, intoxicant use, suicidal ideation, psychosis, [place]. (Vicky Thapa) Other Provider: The patient was evaluated and managed by the Physician Ecotherapist. I discussed the patient's presentation and course with the midlevel provider with them and agree with the evaluation. My co-signature indicates that I have reviewed this chart and I agree with the findings and plan of care as documented. I am the secondary supervising physician. (Marlene Weeks) - Data Points Laboratory Results: Laboratory Results 09/04/18 08:55 09/04/18 08:55 09/04/18 09/04/18 09/04/18 08:55 08:55 08:28 WBC 8.74 10^3/uL 10^3/uL (3.80-9.50) RBC 4.99 10^6/uL 10^6/uL (4.40-6.38) Hgb 14.3 g/dL g/dL (13.7-17.5) Hct 43.5 % % (40.0-51.0) MCV 87.2 fL fL (81.5-99.8) MCH 28.7 pg pg (27.9-34.1) MCHC 32.9 g/dL g/dL (32.4-36.7) RDW 14.9 % % (11.5-15.2) Plt Count 307 10^3/uL 10^3/uL (150-400) MPV 9.1 fL fL (8.7-11.7) Neut % (Auto) 67.6 % % (39.3-74.2) Lymph % (Auto) 19.0 % % (15.0-45.0) Early % (Auto) 10.1 % % (4.5-13.0) Eos % (Auto) 2.4 % % (0.6-7.6) Baso % (Auto) 0.3 % % (0.3-1.7) Nucleat RBC Rel Count 0.0 % % (0.0-0.2) Absolute Neuts (auto) 5.91 10^3/uL 10^3/uL (1.70-6.50) Absolute Lymphs (auto) 1.66 10^3/uL 10^3/uL (1.00-3.00) Absolute Monos (auto) 0.88 10^3/uL H 10^3/uL (0.30-0.80) Absolute Eos (auto) 0.21 10^3/uL 10^3/uL (0.03-0.40) Absolute Basos (auto) 0.03 10^3/uL 10^3/uL (0.02-0.10) Absolute Nucleated RBC 0.00 10^3/uL 10^3/uL (0-0.01) Immature Gran % 0.6 % % (0.0-1.1) Immature Gran # 0.05 10^3/uL 10^3/uL (0.00-0.10) Sodium 137 mEq/L mEq/L (135-145) Potassium 4.6 mEq/L mEq/L (3.5-5.2) Chloride 101 mEq/L mEq/L (97-110) Carbon Dioxide 27 mEq/l mEq/l (22-31) Anion Gap 9 mEq/L mEq/L (6-14) BUN 13 mg/dL mg/dL (7-23) Creatinine 0.8 mg/dL mg/dL (0.7-1.3) Estimated GFR > 60 Glucose 57 mg/dL L mg/dL (70-100) Calcium 9.3 mg/dL mg/dL (8.5-10.4) Urine Opiates Screen NEGATIVE (NEGATIVE) Urine Barbiturates NEGATIVE (NEGATIVE) Ur Phencyclidine Scrn NEGATIVE (NEGATIVE) Ur Amphetamine Screen NON-NEGATIVE H (NEGATIVE) U Benzodiazepines Scrn NEGATIVE (NEGATIVE) Urine Cocaine Screen NEGATIVE (NEGATIVE) U Marijuana (THC) Screen NON-NEGATIVE H (NEGATIVE) Ethyl Alcohol < 10 mg/dL mg/dL (0-10) Medications Given: Discontinued Medications Haloperidol (Haldol) 5 mg PO ONCE ONE Stop: 09/04/18 09:04 Last Admin: 09/04/18 09:32 Dose: 5 mg Departure - Departure Disposition: Home, Routine, Self-Care Clinical Impression: Methamphetamine use, Schizoaffective disorder, bipolar type Condition: Good Instructions: Methamphetamine (By mouth) Additional Instructions: Please refrain from using drugs as this can increase your hallucinations. Please keep follow-up appointment with [facility]. Take all medications as prescribed. Referrals: [facility],. [Clinic] - As per Instructions [facility],. [Clinic] - As per Instructions
[2018-09-04 09:07] LABS: PLATELET COUNT 307 10^3/uL (150-400)
[2018-09-04 14:38] VITALS: BP 120/78
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
--- NOTE | 2018-09-04 15:07 | ASMTTCLDSP ---
TLC Discharge Disposition Disposition: Answers: Discharge Disposition Notes: Notes: In consultation with [facility] ED physician, Marlene Barcenas MD, and on-call psychiatrist, Jo Dixon MD, both concurred that pt does not appear to meet 27-65 criteria requiring psychiatric hospitalization as pt does not appear to be an imminent risk of harm to self, others, or gravely disabled due to a mental illness condition. Was patient given the Answers: Not applicable Inpatient Behavioral Health Prohibited Belongings List while in the ED? Date Signed: 09/04/2018 03:06 PM Electronically Signed By:Jose Zazueta
== END 2018-09-04 14:42 | disposition home or self-care (01) ==
DX: F15.10 Other stimulant abuse, uncomplicated (principal); F25.9 Schizoaffective disorder, unspecified; F31.9 Bipolar disorder, unspecified
CPT/HCPCS: 80305; G0480

== ENCOUNTER 2018-09-07 09:24 | Emergency (ER) | payer MEDICAID ==
--- NOTE | 2018-09-07 10:03 | EDPHY ---
H & P Stated Complaint: SI Time Seen by Provider: 09/07/18 09:25 HPI/ROS: CHIEF COMPLAINT: "I just want to kill myself" HISTORY OF PRESENT ILLNESS: 27-year-old male history of homelessness, schizoaffective disorder, off of medications,, arrives via ambulance, not on a pre-hospital mental health hold, complaining of progressive suicidal ideation with plan to lacerated himself. He notes a superficial abrasion to his right forearm. Denies: Methamphetamine abuse, chest pain, back pain, hallucination, intentional ingestion beyond alcohol. REVIEW OF SYSTEMS: 10 systems reviewed and negative with the exception of the elements mentioned in the history of present illness PAST MEDICAL & SURGICAL HISTORY: Schizoaffective disorder. Noncompliant with medications. SOCIAL HISTORY: Last drink of alcohol yesterday afternoon. Denies methamphetamine or street drug use. PHYSICAL EXAM (Prior to examination, patient consented to physical exam, hands were washed and my usual and customary physical exam procedures followed) 1) GENERAL: poorly kept, foul smelling, alert and oriented. Appears to be in no acute distress. 2) HEAD: Normocephalic, atraumatic 3) HEENT: Pupils equal, round, reactive to light bilaterally. Sclera anicteric. 4) NECK: Full range of motion, no meningeal signs. 5) LUNGS: Clear auscultation bilaterally, no wheezes, no rhonchi, no retractions. 6) HEART: Regular rate and rhythm, no murmur, no heave, no gallop. 7) ABDOMEN: No guarding, no rebound, no focal tenderness, negative McBurney's, negative Levy's, negative Rovsing's, negative peritoneal sign, 8) MUSCULOSKELETAL: Right volar forearm superficial abrasion with no signs of infection. Right antecubital fossa abrasion with no signs of infection. Moving all extremities, no focal areas of tenderness, no obvious trauma. No peripheral edema or discoloration. 9) BACK: No CVA tenderness, no midline vertebral tenderness, no fluctuance, no step-off, no obvious trauma, no visual or palpable abnormality. 10) SKIN: No rash, no petechiae. 11) Psychiatric: Patient is oriented X 3, there is no agitation. DIFFERENTIAL DIAGNOSIS: In no particular order including but not limited to suicidal ideation, homicidal ideation, polysubstance abuse - Personal History Current Tetanus/Diphtheria Vaccine: Yes Current Tetanus Diphtheria and Acellular Pertussis (TDAP): Yes Tetanus Vaccine Date: < 10 years - Medical/Surgical History Hx Asthma: No Hx Chronic Respiratory Disease: No Hx Diabetes: No Hx Cardiac Disease: No Hx Renal Disease: No Hx Cirrhosis: No Hx Alcoholism: No Hx HIV/AIDS: No Hx Splenectomy or Spleen Trauma: No Other PMH: IVDA, bipolar with psychotic features, meth use, homeless, PTSD - Social History Smoking Status: Current every day smoker Constitutional: Initial Vital Signs Temperature (C) 36.6 C 09/07/18 09:24 Heart Rate 74 09/07/18 09:24 Respiratory Rate 18 09/07/18 09:24 Blood Pressure 106/83 H 09/07/18 09:24 O2 Sat (%) 100 09/07/18 09:24 O2 Delivery Mode Room Air Allergies/Adverse Reactions: aripiprazole [From Abilify] Allergy (Verified 09/07/18 09:36) olanzapine [From Zyprexa] Allergy (Verified 09/07/18 09:36) Home Medications: Medication Instructions Recorded NK [No Known Home Meds] 09/07/18 Medical Decision Making ED Course/Re-evaluation: 10:01 a.m.: Consultation with Dr. Shyla French in the emergency department the patient was placed on M1 hold as he endorses suicidal ideation with plan to lacerate himself. I think he poses an imminent danger to himself. 12:27 p.m.: Patient has been evaluated by [facility] mental health in consultation with Dr. Franks. They recommended termination of the mental health hold. Patient has a history of suspected malingering and drug-seeking behavior and plan will be discharge. - Data Points Laboratory Results: Laboratory Results 09/07/18 10:13 09/07/18 10:13 09/07/18 09/07/18 09/07/18 10:36 10:13 10:13 WBC 14.24 10^3/uL H 10^3/uL (3.80-9.50) RBC 5.38 10^6/uL 10^6/uL (4.40-6.38) Hgb 15.3 g/dL g/dL (13.7-17.5) Hct 46.8 % % (40.0-51.0) MCV 87.0 fL fL (81.5-99.8) MCH 28.4 pg pg (27.9-34.1) MCHC 32.7 g/dL g/dL (32.4-36.7) RDW 14.8 % % (11.5-15.2) Plt Count 286 10^3/uL 10^3/uL (150-400) MPV 9.3 fL fL (8.7-11.7) Neut % (Auto) 71.7 % % (39.3-74.2) Lymph % (Auto) 16.9 % % (15.0-45.0) [place] % (Auto) 8.7 % % (4.5-13.0) Eos % (Auto) 1.8 % % (0.6-7.6) Baso % (Auto) 0.4 % % (0.3-1.7) Nucleat RBC Rel Count 0.0 % % (0.0-0.2) Absolute Neuts (auto) 10.23 10^3/uL H 10^3/uL (1.70-6.50) Absolute Lymphs (auto) 2.40 10^3/uL 10^3/uL (1.00-3.00) Absolute Monos (auto) 1.24 10^3/uL H 10^3/uL (0.30-0.80) Absolute Eos (auto) 0.25 10^3/uL 10^3/uL (0.03-0.40) Absolute Basos (auto) 0.05 10^3/uL 10^3/uL (0.02-0.10) Absolute Nucleated RBC 0.00 10^3/uL 10^3/uL (0-0.01) Immature Gran % 0.5 % % (0.0-1.1) Immature Gran # 0.07 10^3/uL 10^3/uL (0.00-0.10) Sodium 135 mEq/L mEq/L (135-145) Potassium 5.0 mEq/L mEq/L (3.5-5.2) Chloride 102 mEq/L mEq/L (97-110) Carbon Dioxide 27 mEq/l mEq/l (22-31) Anion Gap 6 mEq/L mEq/L (6-14) BUN 15 mg/dL mg/dL (7-23) Creatinine 0.8 mg/dL mg/dL (0.7-1.3) Estimated GFR > 60 Glucose 78 mg/dL mg/dL (70-100) Calcium 10.2 mg/dL mg/dL (8.5-10.4) Salicylates < 1.0 mg/dL L mg/dL (2.0-20.0) Urine Opiates Screen NEGATIVE (NEGATIVE) Urine Barbiturates NEGATIVE (NEGATIVE) Ur Phencyclidine Scrn NEGATIVE (NEGATIVE) Ur Amphetamine Screen NEGATIVE (NEGATIVE) U Benzodiazepines Scrn NEGATIVE (NEGATIVE) Urine Cocaine Screen NEGATIVE (NEGATIVE) U Marijuana (THC) Screen NON-NEGATIVE H (NEGATIVE) Ethyl Alcohol < 10 mg/dL mg/dL (0-10) Medications Given: Discontinued Medications Acetaminophen (Tylenol) 650 mg PO EDNOW ONE Stop: 09/07/18 10:41 Last Admin: 09/07/18 10:46 Dose: 650 mg Departure - Departure Disposition: Home, Routine, Self-Care Clinical Impression: Depression Qualifiers: Depression Type: unspecified Qualified Code(s): F32.9 - Major depressive disorder, single episode, unspecified Condition: Good Instructions: Depression (ED) Additional Instructions: Return to the ER immediately if you experience thoughts of hurting yourself, thoughts of hurting other people, thoughts of killing other people or killing yourself. Referrals: [facility] [Clinic] - 1 day without fail
[2018-09-07] MEDS ORDERED: ACETAMINOPHEN 325 MG TAB PO ONE (10:40)
[2018-09-07] MEDS ORDERED: ACETAMINOPHEN 325 MG TAB ONE (10:45)
[2018-09-07 11:14] LABS: PLATELET COUNT 286 10^3/uL (150-400)
[2018-09-07 12:49] VITALS: BP 123/68
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
--- NOTE | 2018-09-07 13:06 | ASMTTCLDSP ---
TLC Discharge Disposition Disposition: Answers: Discharge If Answers: Yes DISCHARGED: Patient/family given suicide hotline info & SAMHSA brochure? Disposition Notes: Notes: Pt was given resources for [facility] and [facility]. Pt requested a prescription before being discharged. I passed this along to the PA. Discharge Concerns/Recommendations: Notes: In consultation with [facility] ED physician, Shyla French MD, concurred that pt does not appear to meet 27-65 criteria requiring psychiatric hospitalization as pt does not appear to be an imminent risk of harm to self/others/gravely disabled due to a mental illness condition. IF M1 VACATED: Dr. French provided telephone order read back vacating M1 hold at 1230 hrs. Date and time M1 hold 09/07/2018 12:30 PM vacated (time format is hh:mm): Date Signed: 09/07/2018 01:01 PM Electronically Signed By:Grace Suarez
== END 2018-09-07 12:55 | disposition home or self-care (01) ==
LOC: EDUNIT# → EEVIPCON 09:24
DX: R45.851 Suicidal ideations (principal); F32.9 Major depressive disorder, single episode, unspecified; Z59.0 Homelessness; F20.89 Other schizophrenia
CPT/HCPCS: 80305; G0480